=== PATIENT | male | born 1980 | race Caucasian/White ===

== ENCOUNTER 2016-12-19 13:09 | Inpatient (IN) | payer OTHER ==
[2016-12-19 15:21] VITALS: BMI 23.0
[2016-12-19] MEDS ORDERED: MAGNESIUM HYDROX 2400MG/30ML ORAL SUSPENSION 30 ML CUP PO PRN (17:35)
[2016-12-19] MEDS ORDERED: MAG HYDROX/AL HYDROX/SIMETH 30 ML UNIT-DOSE CUP PO PRN (17:35)
[2016-12-19] MEDS ORDERED: P-EPHED 60MG/TRIPROLIDI 2.5MG TABLET PO PRN (17:35)
[2016-12-19] MEDS ORDERED: IBUPROFEN 400 MG TABLET (FP) PO PRN (17:35)
[2016-12-19] MEDS ORDERED: ACETAMINOPHEN 325 MG TABLET (FP) PO PRN (17:35)
[2016-12-19] MEDS ORDERED: MAGNESIUM CITRATE 300 ML BOTTLE PO PRN (17:35)
[2016-12-19] MEDS ORDERED: guaiFENesin/D-METHORPHAN HB 10 ML UNIT-DOSE CUPS PO PRN (17:35)
[2016-12-19] MEDS ORDERED: MENTHOL/PHENOL 1 EACH UD MM PRN (17:35)
[2016-12-19] MEDS ORDERED: LOPERAMIDE HCL 2 MG CAPSULE PO PRN (17:35)
--- NOTE | 2016-12-19 17:35 | HP ---
COWS - Scale Resting Pulse: 0= [place] 80 or Below Sweatin= Chills/Flushing Restless Observation: 3= Extraneous Movement Pupil Size: 1= Pupils >than Normal Bone or Joint Aches: 1= Mild Discomfort Runny Nose/ Eye Tearin= Runny Nose/Eyes GI Upset > 30mins: 2= Nausea/Diarrhea Tremor Observation: 2= Slight Tremor Visible Yawning Observation: 1= 1-2x During Session Anxiety or Irritability: 2=Irritable/Anxious Goose Flesh Skin: 0=Smooth Skin COWS Score: 15 Admission ROS S - [facility] Chief Complaint: WITHDRAWAL SX Allergies/Adverse Reactions: Allergies Allergy/AdvReac Type Severity Reaction Status Date / Time No Known Allergies Allergy Verified 12/19/16 16:15 History of Present Illness: 36 YEARS OLD MALE WITH LONG HISTORY OF PERCOCET NICOTINE DEPENDENCE, DENIES MEDICAL ISSUE DENIES MENTAL ILLNESS IS ADMITTED TO DETOX Exam Limitations: No Limitations - Ebola screening Have you traveled outside of the country in the last 21 days: No Have you had contact with anyone from an Ebola affected area: No Have you been sick,other than usual withdrawal symptoms: No Do you have a fever: No - Review of Systems Constitutional: Chills, Loss of Appetite, Changes in sleep, Unintentional Wgt. Loss EENT: reports: No Symptoms Reported Respiratory: reports: Shortness of Breath Cardiac: reports: No Symptoms Reported GI: reports: Nausea, Poor Appetite, Poor Fluid Intake, Indigestion, Abdominal cramping : reports: No Symptoms Reported Musculoskeletal: reports: No Symptoms Reported Integumentary: reports: No Symptoms Reported Neuro: reports: Tremors Endocrine: reports: No Symptoms Reported Hematology: reports: No Symptoms Reported Psychiatric: reports: Judgement Intact, Mood/Affect Appropiate, Orientated x3 Other Systems: Reviewed and Negative Patient History - Patient Medical History Hx Anemia: No Hx Asthma: No Hx Chronic Obstructive Pulmonary Disease (COPD): No Hx Cancer: No Hx Cardiac Disorders: No Hx Congestive Heart Failure: No Hx Hypertension: No Hx Hypercholesterolemia: No Hx Pacemaker: No HX Cerebrovascular Accident: No Hx Seizures: No Hx Dementia: No Hx Diabetes: No Hx Gastrointestinal Disorders: No Hx Liver Disease: No Hx Genitourinary Disorders: No Hx Sexually Transmitted Disorders: No Hx Renal Disease (ESRD): No Hx Thyroid Disease: No Hx Human Immunodeficiency Virus (HIV): No (negative ) Hx Hepatitis C: No Hx Depression: No Hx Suicide Attempt: No Hx Bipolar Disorder: No Hx Schizophrenia: No - Patient Surgical History Past Surgical History: No Hx Neurologic Surgery: No Hx Cataract Extraction: No Hx Cardiac Surgery: No Hx Lung Surgery: No Hx Breast Surgery: No Hx Breast Biopsy: No Hx Abdominal Surgery: No Hx Appendectomy: No Hx Cholecystectomy: No Hx Genitourinary Surgery: No Hx Orthopedic Surgery: No - PPD History Previous Implant?: Yes Documented Results: Negative w/proof Implanted On Prior [facility] Admission?: Yes Date: 09/13/14 Results: 0 mm PPD to be Administered?: Yes - Smoking Cessation Smoking history: Current every day smoker Have you smoked in the past 12 months: Yes Aproximately how many cigarettes per day: 20 Cigars Per Day: 0 Hx Chewing Tobacco Use: No Initiated information on smoking cessation: Yes 'Breaking Loose' booklet given: 12/19/16 - Substance & Tx. History Hx Alcohol Use: No Hx Substance Use: Yes Substance Use Type: Cocaine, Marijuana, Opiates Hx Substance Use Treatment: Yes - Substances Abused Cocaine Route: Inhalation Frequency: 1-2 times per week Amount used: $30 Age of first use: 19 Date of Last Use: 12/18/16 Percocet Route: Oral Frequency: Daily Amount used: 600-1000 MG Age of first use: 33 Date of Last Use: 12/19/16 Marijuana Route: Smoking Frequency: Daily Amount used: $10 Age of first use: 14 Date of Last Use: 12/18/16 Family Disease History - Family Disease History Family Disease History: [place]: Grandparent () Admission Physical Exam S - Vital Signs Vital Signs: Vital Signs - 24 hr 12/19/16 15:20 Temperature 96.1 F L Pulse Rate 74 Respiratory 16 Rate Blood Pressure 122/69 - Physical General Appearance: Yes: Appropriately Dressed, Mild Distress, Thin, Tremorous, Irritable, Sweating, Anxious HEENTM: Yes: Hearing grossly Normal, Normal ENT Inspection, Normocephalic, Normal Voice Respiratory: Yes: Chest Non-Tender, Lungs Clear, Normal Breath Sounds, No Respiratory Distress, No Accessory Muscle Use Neck: Yes: Supple, Trachea in good position Breast: Yes: Breasts Symetrical Cardiology: Yes: Regular Rhythm, Regular Rate, S1, S2 Abdominal: Yes: Non Tender, Soft Genitourinary: Yes: Within Normal Limits Back: Yes: Normal Inspection Musculoskeletal: Yes: full range of Motion, Gait Steady, Back pain Neurological: Yes: Fully Oriented, Alert, Motor Strength 5/5, Normal Mood/Affect , Normal Response Integumentary: Yes: Warm, Moist Lymphatic: Yes: Within Normal Limits - Diagnostic (1) Opioid dependence with withdrawal Current Visit: Yes Status: Acute (2) Cocaine dependence, uncomplicated Current Visit: Yes Status: Chronic (3) Cannabis dependence, uncomplicated Current Visit: Yes Status: Chronic (4) Nicotine dependence Current Visit: Yes Status: Acute Qualifiers: Nicotine product type: cigarettes Substance use status: in withdrawal Qualified Code(s): F17.213 - Nicotine dependence, cigarettes, with withdrawal (5) Weight loss Current Visit: Yes Status: Acute Cleared for Admission [facility] - Detox or Rehab [facility] Level of Care: Medically Managed Detox Regimen/Protocol: Methadone [facility] Breath Alcohol Content Breath Alcohol Content: 0 Urine Drug Screen - Results Drug Screen Negative: No Urine Drug Screen Results: THC-Marijuana, ESPERANZA-Cocaine, OXY-Oxycodone
[2016-12-19] MEDS ORDERED: METHADONE HCL 10 MG TABLET (FOR DETOX USE ONLY) PO ONE ×2 (18:30→23:00)
[2016-12-19] MEDS: diazePAM 5 MG TABLET PO PRN ×2 (18:44→23:32)
[2016-12-19] MEDS: CYCLOBENZAPRINE HCL 10 MG TABLET (FP) PO PRN (19:33)
[2016-12-19 19:56] LABS: URINE APPEARANCE CLEAR; URINE BILIRUBIN NEGATIVE (NEGATIVE); URINE BLOOD NEGATIVE (NEGATIVE); URINE COLOR LTYELLOW; URINE GLUCOSE (UA) NEGATIVE (NEGATIVE); URINE KETONE NEGATIVE (NEGATIVE); URINE LEUK ESTERASE NEGATIVE (NEGATIVE); URINE NITRITE NEGATIVE (NEGATIVE); URINE PROTEIN NEGATIVE (NEGATIVE); URINE UROBILINOGEN NEGATIVE E.U./dl (0.2-1.0)
[2016-12-19] MEDS: NICOTINE 21 MG/24 HOURS TOPICAL PATCH TD SCH (21:18)
--- NOTE | 2016-12-19 21:47 | PN ---
S Progress Note Note: RECEIVED NURSE CALL PATIENT WANTS NICOTINE PATCH NOW NICOTINE PATCH BEGIN TODAY CONTINUE DETOX
[2016-12-19] MEDS: THIAMINE HCL 100 MG TABLET (FP) PO SCH (22:13)
[2016-12-20] MEDS: CYCLOBENZAPRINE HCL 10 MG TABLET (FP) PO PRN ×2 (08:33→22:31)
--- NOTE | 2016-12-20 09:22 | PN ---
BHS COWS - Scale Resting Pulse: 0= [place] 80 or Below Sweatin=Flushed/Facial Moisture Restless Observation: 1= Difficult to Sit Still Pupil Size: 1= Pupils >than Normal Bone or Joint Aches: 1= Mild Discomfort Runny Nose/ Eye Tearin= Nasal Congestion GI Upset > 30mins: 1= Stomach Cramp Tremor Observation of Outstretched Hands: 1= Tremor [place], Not Seen Yawning Observation: 0= None Anxiety or Irritability: 2=Irritable/Anxious Goose Flesh Skin: 0=Smooth Skin COWS Score: 10 BHS Progress Note (SOAP) Subjective: interrupted sleep, sweats Objective: 12/20/16 09:20 Vital Signs Temperature 97 F L 12/20/16 06:59 Pulse Rate 72 12/20/16 06:59 Respiratory Rate 18 12/20/16 06:59 Blood Pressure 137/80 12/20/16 06:59 O2 Sat by Pulse Oximetry (%) Assessment: 12/20/16 09:21 withdrawal sx,s Plan: cont, detox increase fluids
[2016-12-20] MEDS ORDERED: METHADONE HCL 10 MG TABLET (FOR DETOX USE ONLY) PO ONE (10:00)
[2016-12-20] MEDS ORDERED: NICOTINE 21 MG/24 HOURS TOPICAL PATCH TD SCH (10:00)
[2016-12-20 10:06] LABS: MCH 31.5 pg (25.7-33.7); MEAN CELL VOLUME 95.5 fl (80-96); PLATELET COUNT 184 K/MM3 (134-434); WHITE BLOOD COUNT 5.8 K/mm3 (4.0-10.0)
[2016-12-20 10:18] LABS: ALBUMIN 3.7 g/dl (3.4-5.0); ANION GAP 7 (8-16); CALCIUM 8.7 mg/dL (8.5-10.1); CO2 29 mmol/L (21-32); GLUCOSE,RANDOM 84 mg/dL (74-106)
[2016-12-20 10:21] LABS: ALK PHOS 75 U/L (45-117); BILIRUBIN,TOTAL 0.2 mg/dL (0.2-1.0); CREATININE 1.3 mg/dL (0.7-1.3); SGOT/AST 18 U/L (15-37); SGPT/ALT 18 U/L (12-78); TOT PROT 6.6 g/dl (6.4-8.2)
[2016-12-20] MEDS: diazePAM 5 MG TABLET PO PRN ×3 (10:34→22:31)
[2016-12-20] MEDS: PRENATAL VITAMINS W/ FOLIC ACID TABLET (FP) PO SCH (10:34)
[2016-12-20] MEDS: NICOTINE 21 MG/24 HOURS TOPICAL PATCH TD SCH (10:34)
--- NOTE | 2016-12-20 15:06 | EKG ---
Test Reason : Blood Pressure : / mmHG Vent. Rate : 061 BPM Atrial Rate : 061 BPM P-R Int : 132 ms QRS Dur : 094 ms QT Int : 410 ms P-R-T Axes : 046 040 015 degrees QTc Int : 412 ms NORMAL SINUS RHYTHM NORMAL ECG WHEN COMPARED WITH ECG OF 18-OCT-2013 17:52, NO SIGNIFICANT CHANGE WAS FOUND Confirmed by CHUCK BETANCOURT MD ([id number]) on 12/20/2016 3:06:40 PM Referred By: Confirmed By:CHUCK BETANCOURT MD
[2016-12-20] MEDS: THIAMINE HCL 100 MG TABLET (FP) PO SCH (22:31)
[2016-12-20] MEDS: diphenhydrAMINE HCL 50 MG CAPSULE PO PRN (22:32)
[2016-12-20] MEDS: NICOTINE POLACRILEX 4 MG GUM BC PRN (22:33)
[2016-12-21] MEDS ORDERED: METHADONE HCL 5 MG TABLET (FOR DETOX USE ONLY) PO ONE (10:00)
[2016-12-21] MEDS: diazePAM 5 MG TABLET PO PRN ×4 (10:20→23:07)
[2016-12-21] MEDS: CYCLOBENZAPRINE HCL 10 MG TABLET (FP) PO PRN ×2 (10:20→18:40)
[2016-12-21] MEDS: PRENATAL VITAMINS W/ FOLIC ACID TABLET (FP) PO SCH (10:20)
[2016-12-21] MEDS: NICOTINE 21 MG/24 HOURS TOPICAL PATCH TD SCH (10:21)
[2016-12-21] MEDS: NICOTINE POLACRILEX 4 MG GUM BC PRN (10:43)
--- NOTE | 2016-12-21 12:19 | PN ---
BHS COWS - Scale Resting Pulse: 0= [place] 80 or Below Sweatin= Chills/Flushing Restless Observation: 1= Difficult to Sit Still Pupil Size: 0= Normal to Room Light Bone or Joint Aches: 1= Mild Discomfort Runny Nose/ Eye Tearin= None GI Upset > 30mins: 1= Stomach Cramp Tremor Observation of Outstretched Hands: 2= Slight Tremor Visible Yawning Observation: 0= None Anxiety or Irritability: 2=Irritable/Anxious Goose Flesh Skin: 3=Piloe[place] COWS Score: 11 BHS Progress Note (SOAP) Subjective: Interrupted Sleep, Tremors. Objective: PT. A & O X 2, (DISORIENTED ABOUT DAY / DATE). PT. OBSERVED AMBULATING ON UNIT. 12/21/16 12:17 Vital Signs Temperature 96.6 F L 12/21/16 09:57 Pulse Rate 69 12/21/16 09:57 Respiratory Rate 18 12/21/16 09:57 Blood Pressure 143/64 12/21/16 09:57 O2 Sat by Pulse Oximetry (%) Laboratory Last Values WBC 5.8 K/mm3 (4.0-10.0) 12/20/16 06:10 RBC 4.22 M/mm3 (4.00-5.60) 12/20/16 06:10 Hgb 13.3 GM/dL (11.7-16.9) 12/20/16 06:10 Hct 40.3 % (35.4-49) 12/20/16 06:10 MCV 95.5 fl (80-96) 12/20/16 06:10 MCHC 33.0 g/dl (32.0-35.9) 12/20/16 06:10 RDW 13.0 % (11.9-15.9) 12/20/16 06:10 Plt Count 184 K/MM3 (134-434) 12/20/16 06:10 MPV 11.0 fl (7.5-11.1) 12/20/16 06:10 Sodium 141 mmol/L (136-145) 12/20/16 06:10 Potassium 4.3 mmol/L (3.5-5.1) 12/20/16 06:10 Chloride 105 mmol/L (98-107) 12/20/16 06:10 Carbon Dioxide 29 mmol/L (21-32) 12/20/16 06:10 Anion Gap 7 (8-16) L 12/20/16 06:10 BUN 17 mg/dL (7-18) D 12/20/16 06:10 Creatinine 1.3 mg/dL (0.7-1.3) 12/20/16 06:10 Creat Clearance w eGFR > 60 (>60) 12/20/16 06:10 Random Glucose 84 mg/dL (74-106) 12/20/16 06:10 Calcium 8.7 mg/dL (8.5-10.1) 12/20/16 06:10 Total Bilirubin 0.2 mg/dL (0.2-1.0) D 12/20/16 06:10 AST 18 U/L (15-37) 12/20/16 06:10 ALT 18 U/L (12-78) 12/20/16 06:10 Alkaline Phosphatase 75 U/L (45-117) D 12/20/16 06:10 Total Protein 6.6 g/dl (6.4-8.2) 12/20/16 06:10 Albumin 3.7 g/dl (3.4-5.0) 12/20/16 06:10 Urine Color Ltyellow 12/19/16 19:00 Urine Appearance Clear 12/19/16 19:00 Urine pH 5.0 (5.0-8.0) 12/19/16 19:00 Ur Specific [place] 1.025 (1.001-1.035) 12/19/16 19:00 Urine Protein Negative (NEGATIVE) 12/19/16 19:00 Urine Glucose (UA) Negative (NEGATIVE) 12/19/16 19:00 Urine Ketones Negative (NEGATIVE) 12/19/16 19:00 Urine Blood Negative (NEGATIVE) 12/19/16 19:00 Urine Nitrite Negative (NEGATIVE) 12/19/16 19:00 Urine Bilirubin Negative (NEGATIVE) 12/19/16 19:00 Urine Urobilinogen Negative E.U./dl (0.2-1.0) 12/19/16 19:00 Ur Leukocyte Esterase Negative (NEGATIVE) 12/19/16 19:00 RPR Titer Nonreactive (NONREACTIVE) 12/20/16 06:10 Hepatitis C Antibody 0.5 s/co ratio (0.0-0.9) 12/20/16 06:10 LABS NOTED. Assessment: 12/21/16 12:18 WITHDRAWAL SYMPTOMS. Plan: CONTINUE DETOX.
[2016-12-21] MEDS: diphenhydrAMINE HCL 50 MG CAPSULE PO PRN (23:07)
[2016-12-21] MEDS: THIAMINE HCL 100 MG TABLET (FP) PO SCH (23:07)
[2016-12-22] MEDS: diazePAM 5 MG TABLET PO PRN ×3 (05:53→14:39)
[2016-12-22] MEDS: CYCLOBENZAPRINE HCL 10 MG TABLET (FP) PO PRN ×3 (05:53→22:02)
[2016-12-22] MEDS: NICOTINE POLACRILEX 4 MG GUM BC PRN ×3 (07:22→21:48)
[2016-12-22] MEDS ORDERED: METHADONE HCL 5 MG TABLET (FOR DETOX USE ONLY) PO ONE (10:00)
[2016-12-22] MEDS: NICOTINE 21 MG/24 HOURS TOPICAL PATCH TD SCH (10:15)
[2016-12-22] MEDS: PRENATAL VITAMINS W/ FOLIC ACID TABLET (FP) PO SCH (10:15)
--- NOTE | 2016-12-22 12:23 | PN ---
S Progress Note (SOAP) Subjective: Generalized pain Objective: 12/22/16 12:23 Vital Signs - 8 hr 12/22/16 12/22/16 06:00 10:00 Temperature 97.9 F 99.0 F Pulse Rate 79 94 H Respiratory 18 18 Rate Blood Pressure 104/71 140/64 Laboratory Last Values WBC 5.8 K/mm3 (4.0-10.0) 12/20/16 06:10 RBC 4.22 M/mm3 (4.00-5.60) 12/20/16 06:10 Hgb 13.3 GM/dL (11.7-16.9) 12/20/16 06:10 Hct 40.3 % (35.4-49) 12/20/16 06:10 MCV 95.5 fl (80-96) 12/20/16 06:10 MCHC 33.0 g/dl (32.0-35.9) 12/20/16 06:10 RDW 13.0 % (11.9-15.9) 12/20/16 06:10 Plt Count 184 K/MM3 (134-434) 12/20/16 06:10 MPV 11.0 fl (7.5-11.1) 12/20/16 06:10 Sodium 141 mmol/L (136-145) 12/20/16 06:10 Potassium 4.3 mmol/L (3.5-5.1) 12/20/16 06:10 Chloride 105 mmol/L (98-107) 12/20/16 06:10 Carbon Dioxide 29 mmol/L (21-32) 12/20/16 06:10 Anion Gap 7 (8-16) L 12/20/16 06:10 BUN 17 mg/dL (7-18) D 12/20/16 06:10 Creatinine 1.3 mg/dL (0.7-1.3) 12/20/16 06:10 Creat Clearance w eGFR > 60 (>60) 12/20/16 06:10 Random Glucose 84 mg/dL (74-106) 12/20/16 06:10 Calcium 8.7 mg/dL (8.5-10.1) 12/20/16 06:10 Total Bilirubin 0.2 mg/dL (0.2-1.0) D 12/20/16 06:10 AST 18 U/L (15-37) 12/20/16 06:10 ALT 18 U/L (12-78) 12/20/16 06:10 Alkaline Phosphatase 75 U/L (45-117) D 12/20/16 06:10 Total Protein 6.6 g/dl (6.4-8.2) 12/20/16 06:10 Albumin 3.7 g/dl (3.4-5.0) 12/20/16 06:10 Urine Color Ltyellow 12/19/16 19:00 Urine Appearance Clear 12/19/16 19:00 Urine pH 5.0 (5.0-8.0) 12/19/16 19:00 Ur Specific [place] 1.025 (1.001-1.035) 12/19/16 19:00 Urine Protein Negative (NEGATIVE) 12/19/16 19:00 Urine Glucose (UA) Negative (NEGATIVE) 12/19/16 19:00 Urine Ketones Negative (NEGATIVE) 12/19/16 19:00 Urine Blood Negative (NEGATIVE) 12/19/16 19:00 Urine Nitrite Negative (NEGATIVE) 12/19/16 19:00 Urine Bilirubin Negative (NEGATIVE) 12/19/16 19:00 Urine Urobilinogen Negative E.U./dl (0.2-1.0) 12/19/16 19:00 Ur Leukocyte Esterase Negative (NEGATIVE) 12/19/16 19:00 RPR Titer Nonreactive (NONREACTIVE) 12/20/16 06:10 Hepatitis C Antibody 0.5 s/co ratio (0.0-0.9) 12/20/16 06:10 Labs noted Assessment: 12/22/16 12:23 withdrawal sx Plan: continue detox
[2016-12-22] MEDS: hydrOXYzine PAMOATE 50 MG CAPSULE (FP) PO PRN (17:53)
[2016-12-22] MEDS: diphenhydrAMINE HCL 50 MG CAPSULE PO PRN (22:02)
[2016-12-22] MEDS: THIAMINE HCL 100 MG TABLET (FP) PO SCH (22:03)
[2016-12-23] MEDS: hydrOXYzine PAMOATE 50 MG CAPSULE (FP) PO PRN ×3 (05:17→22:09)
[2016-12-23] MEDS: CYCLOBENZAPRINE HCL 10 MG TABLET (FP) PO PRN ×3 (05:17→22:09)
[2016-12-23] MEDS: NICOTINE POLACRILEX 4 MG GUM BC PRN ×3 (07:19→16:43)
[2016-12-23] MEDS ORDERED: METHADONE HCL 10 MG TABLET (FOR DETOX USE ONLY) PO ONE (10:00)
[2016-12-23] MEDS: PRENATAL VITAMINS W/ FOLIC ACID TABLET (FP) PO SCH (10:13)
[2016-12-23] MEDS: NICOTINE 21 MG/24 HOURS TOPICAL PATCH TD SCH (10:13)
--- NOTE | 2016-12-23 11:46 | PN ---
BHS Progress Note (SOAP) Subjective: Interrupted Sleep, Body Aches, Restlessness, Chills, Tremors Objective: Vital Signs Temperature 98.1 F 12/23/16 10:00 Pulse Rate 100 H 12/23/16 10:00 Respiratory Rate 16 12/23/16 10:00 Blood Pressure 122/70 12/23/16 10:00 O2 Sat by Pulse Oximetry (%) Laboratory Last Values WBC 5.8 K/mm3 (4.0-10.0) 12/20/16 06:10 RBC 4.22 M/mm3 (4.00-5.60) 12/20/16 06:10 Hgb 13.3 GM/dL (11.7-16.9) 12/20/16 06:10 Hct 40.3 % (35.4-49) 12/20/16 06:10 MCV 95.5 fl (80-96) 12/20/16 06:10 MCHC 33.0 g/dl (32.0-35.9) 12/20/16 06:10 RDW 13.0 % (11.9-15.9) 12/20/16 06:10 Plt Count 184 K/MM3 (134-434) 12/20/16 06:10 MPV 11.0 fl (7.5-11.1) 12/20/16 06:10 Sodium 141 mmol/L (136-145) 12/20/16 06:10 Potassium 4.3 mmol/L (3.5-5.1) 12/20/16 06:10 Chloride 105 mmol/L (98-107) 12/20/16 06:10 Carbon Dioxide 29 mmol/L (21-32) 12/20/16 06:10 Anion Gap 7 (8-16) L 12/20/16 06:10 BUN 17 mg/dL (7-18) D 12/20/16 06:10 Creatinine 1.3 mg/dL (0.7-1.3) 12/20/16 06:10 Creat Clearance w eGFR > 60 (>60) 12/20/16 06:10 Random Glucose 84 mg/dL (74-106) 12/20/16 06:10 Calcium 8.7 mg/dL (8.5-10.1) 12/20/16 06:10 Total Bilirubin 0.2 mg/dL (0.2-1.0) D 12/20/16 06:10 AST 18 U/L (15-37) 12/20/16 06:10 ALT 18 U/L (12-78) 12/20/16 06:10 Alkaline Phosphatase 75 U/L (45-117) D 12/20/16 06:10 Total Protein 6.6 g/dl (6.4-8.2) 12/20/16 06:10 Albumin 3.7 g/dl (3.4-5.0) 12/20/16 06:10 Urine Color Ltyellow 12/19/16 19:00 Urine Appearance Clear 12/19/16 19:00 Urine pH 5.0 (5.0-8.0) 12/19/16 19:00 Ur Specific [place] 1.025 (1.001-1.035) 12/19/16 19:00 Urine Protein Negative (NEGATIVE) 12/19/16 19:00 Urine Glucose (UA) Negative (NEGATIVE) 12/19/16 19:00 Urine Ketones Negative (NEGATIVE) 12/19/16 19:00 Urine Blood Negative (NEGATIVE) 12/19/16 19:00 Urine Nitrite Negative (NEGATIVE) 12/19/16 19:00 Urine Bilirubin Negative (NEGATIVE) 12/19/16 19:00 Urine Urobilinogen Negative E.U./dl (0.2-1.0) 12/19/16 19:00 Ur Leukocyte Esterase Negative (NEGATIVE) 12/19/16 19:00 RPR Titer Nonreactive (NONREACTIVE) 12/20/16 06:10 Hepatitis C Antibody 0.5 s/co ratio (0.0-0.9) 12/20/16 06:10 Labs Noted Assessment: Withdrawal Symptoms Plan: Continue Detox
[2016-12-23] MEDS: THIAMINE HCL 100 MG TABLET (FP) PO SCH (22:09)
[2016-12-24] MEDS ORDERED: METHADONE HCL 5 MG TABLET (FOR DETOX USE ONLY) PO ONE (06:00)
[2016-12-24] MEDS: CYCLOBENZAPRINE HCL 10 MG TABLET (FP) PO PRN (06:23)
[2016-12-24 06:52] VITALS: BP 113/60; PULSE 101; TEMP 98.1
--- NOTE | 2016-12-24 09:09 | DS ---
[facility] Detox Discharge Summary Admission Date: 12/19/16 Discharge Date: 12/24/16 - History Present History: Cannabis Dependence, Cocaine Dependence, Opioid Dependence, Sedative Dependence - Physical Exam Results Vital Signs: Vital Signs Temperature 98.1 F 12/24/16 06:51 Pulse Rate 101 H 12/24/16 06:51 Respiratory Rate 20 12/24/16 06:51 Blood Pressure 113/60 12/24/16 06:51 O2 Sat by Pulse Oximetry (%) - Treatment Hospital Course: Detox Protocol Followed, Detoxed Safely, Responded well, Discharged Condition Good, Rehab Referral Accepted - Medication Discharge Medications: Ambulatory Orders NK [No Known Home Medication] 12/19/16 - Diagnosis (1) Nicotine dependence Current Visit: Yes Status: Chronic Qualifiers: Nicotine product type: cigarettes Substance use status: uncomplicated Qualified Code(s): F17.210 - Nicotine dependence, cigarettes, uncomplicated (2) Opioid dependence with withdrawal Current Visit: Yes Status: Chronic (3) Weight loss Current Visit: Yes Status: Acute (4) Cannabis dependence, uncomplicated Current Visit: Yes Status: Chronic (5) Cocaine dependence, uncomplicated Current Visit: Yes Status: Chronic (6) Abdominal pain Current Visit: No Status: Resolved (7) Constipation Current Visit: Yes Status: Suspected (8) Xanax use disorder, mild Current Visit: Yes Status: Chronic - AMA Did Patient Leave Against Medical Advice: No
== END 2016-12-24 09:15 | disposition home or self-care (01) | DRG 773 ==
LOC: YASAS 13:09 → Y6N 17:57
PROVIDERS: ADMIT Internal Medicine Addiction Medicine; ATTEND Internal Medicine Addiction Medicine
PROC: HZ2ZZZZ Detoxification Services for Substance Abuse Treatment (ICD-10-PCS; principal; 2016-12-24)
DX: F11.23 Opioid dependence with withdrawal (principal); F17.210 Nicotine dependence, cigarettes, uncomplicated; F12.20 Cannabis dependence, uncomplicated; F17.213 Nicotine dependence, cigarettes, with withdrawal; F13.10 Sedative, hypnotic or anxiolytic abuse, uncomplicated; K59.00 Constipation, unspecified; R63.4 Abnormal weight loss; Z68.23 Body mass index [BMI] 23.0-23.9, adult
CPT/HCPCS: 36415; 80053; 81003; 85027; 86593; 93005; 93010

== ENCOUNTER 2016-12-25 09:47 | Inpatient (IN) | payer OTHER ==
[2016-12-25 10:09] VITALS: BMI 22.7
[2016-12-25] MEDS ORDERED: MAGNESIUM CITRATE 300 ML BOTTLE PO PRN (11:51)
[2016-12-25] MEDS ORDERED: MENTHOL/PHENOL 1 EACH UD MM PRN (11:51)
[2016-12-25] MEDS ORDERED: MAGNESIUM HYDROX 2400MG/30ML ORAL SUSPENSION 30 ML CUP PO PRN (11:51)
[2016-12-25] MEDS ORDERED: LOPERAMIDE HCL 2 MG CAPSULE PO PRN (11:51)
[2016-12-25] MEDS ORDERED: MAG HYDROX/AL HYDROX/SIMETH 30 ML UNIT-DOSE CUP PO PRN (11:51)
[2016-12-25] MEDS ORDERED: guaiFENesin/D-METHORPHAN HB 10 ML UNIT-DOSE CUPS PO PRN (11:51)
[2016-12-25] MEDS ORDERED: P-EPHED 60MG/TRIPROLIDI 2.5MG TABLET PO PRN (11:51)
[2016-12-25] MEDS ORDERED: ACETAMINOPHEN 325 MG TABLET (FP) PO PRN (11:51)
--- NOTE | 2016-12-25 11:51 | HP ---
ADOLPH ELIZALDE Rehab Assess/Revision - Admission History Admitted to Rehab from: [facility] (COMPLETED DETOX ON FROM 12/19/16 TO .) Date of Admission to Rehab: 12/25/16 - Vital signs Vital Signs: Vital Signs Period Temp Pulse Resp BP Sys/Rondon Pulse Ox Last 24 Hr 97.3 F 95 18 103/70 - Findings Detox History & Physical reviewed: Yes Concur with findings: Yes Comments/Additional Findings: PT RETURNED TODAY FOR FOLLOW UP TO REHAB [place] RECOMMENDATION. DENIES PMHX/PSYCH HX. ALERT O X 3. NAD. ADMIT TO REHAB.
[2016-12-25] MEDS: NICOTINE 21 MG/24 HOURS TOPICAL PATCH TD SCH (15:15)
[2016-12-25 20:03] LABS: URINE APPEARANCE CLEAR; URINE BILIRUBIN NEGATIVE (NEGATIVE); URINE BLOOD NEGATIVE (NEGATIVE); URINE COLOR YELLOW; URINE GLUCOSE (UA) NEGATIVE (NEGATIVE); URINE KETONE NEGATIVE (NEGATIVE); URINE LEUK ESTERASE NEGATIVE (NEGATIVE); URINE NITRITE NEGATIVE (NEGATIVE); URINE PROTEIN NEGATIVE (NEGATIVE); URINE UROBILINOGEN NEGATIVE E.U./dl (0.2-1.0)
[2016-12-25] MEDS: THIAMINE HCL 100 MG TABLET (FP) PO SCH (22:02)
[2016-12-25] MEDS: diphenhydrAMINE HCL 50 MG CAPSULE PO PRN ×2 (22:02→23:35)
[2016-12-25] MEDS: hydrOXYzine PAMOATE 25 MG CAPSULE (FP) PO PRN (22:03)
--- NOTE | 2016-12-26 06:31 | HP ---
Psychiatrist Admission - Data Date of interview: 12/26/16 Admission source: 6N Identifying data: This is the first [facility] admision for this 36 years old single male, father of an 11 years old son, unemployed with no source of income, homeless, seeking rehab treatment for percocet, cocaine and marijuana Medical History: Unremarkable. Smokes cigarettes 1ppd Psychiatric History: Reports that age 12 he was referred by school to see a psychiatrist because he was acting up after his father abandoned the family. He saw that psychiatrist twice and no medication was prescribed. At present, reports feeling anxious and experiencing difficulty to sleep. Told speech writer that he was given Benadryl 50 mg last night for sleep but it did not help Physical/Sexual Abuse/Trauma History: Denies history of physical, sexual abuse as well as DV relationship Additional Comment: Reports history of 4-5 misdemeanor arrests. Denies being on probation at present Vital Signs: Vital Signs - 24 hr 12/25/16 12/26/16 10:08 03:30 Temperature 97.3 F L Pulse Rate 95 H Respiratory 18 18 Rate Blood Pressure 103/70 Allergies/Adverse Reactions: Allergies Allergy/AdvReac Type Severity Reaction Status Date / Time No Known Allergies Allergy Verified 12/25/16 10:16 Date of last physical exam: 12/19/16 Concur with the findings of this exam: Yes - Substance Abuse/Tx History Substance Use Type: Cocaine (Started using cocaine at age 19, consumes $30 worth 1-2 times weekly. Last used on 12/18/16), Marijuana (Started smoking marijuana at age 14, consumes $10 worth daily. Last smoked on 12/18/16), Opiates (Started using percocet at age 33, consumes 600-100 mg daily. Last used on ) Hx Substance Use Treatment: Yes (2 previous inpt detox @ [facility]) - Admission Criteria Previous failed treatment: Yes Poor recovery environment: Yes Lacks judgement: Yes Mental Status Exam - Mental Status Exam Alert and Oriented to: Time, Place, Person Cognitive Function: Fair Patient Appearance: Well Groomed Mood: Anxious Affect: Appropriate Patient Behavior: Cooperative Speech Pattern: Clear Voice Loudness: Normal Thought Process: Intact Thought Disorder: Not Present Hallucinations: Denies Suicidal Ideation: Denies Homicidal Ideation: Denies Insight/Judgement: Fair Sleep: Poorly Appetite: Poor Muscle strength/Tone: Normal Gait/Station: Normal Psychiatric Findings - Problem List ([place] 1, 2,3) (1) Opioid dependence with withdrawal Current Visit: No Status: Chronic (2) Cocaine dependence, uncomplicated Current Visit: No Status: Chronic (3) Cannabis dependence, uncomplicated Current Visit: No Status: Chronic (4) Nicotine dependence Current Visit: No Status: Chronic Qualifiers: Nicotine product type: cigarettes Substance use status: uncomplicated Qualified Code(s): F17.210 - Nicotine dependence, cigarettes, uncomplicated (5) Substance-induced anxiety disorder Current Visit: Yes Status: Acute (6) Substance-induced sleep disorder Current Visit: Yes Status: Acute - Initial Treatment Plan Initial Treatment Plan: 1) Start Benadryl 100 mg po HS prn for insomnia. 2) Monitor progress
[2016-12-26] MEDS: NICOTINE 21 MG/24 HOURS TOPICAL PATCH TD SCH (09:59)
[2016-12-26] MEDS: PRENATAL VITAMINS W/ FOLIC ACID TABLET (FP) PO SCH (09:59)
[2016-12-26] MEDS: hydrOXYzine PAMOATE 25 MG CAPSULE (FP) PO PRN ×3 (10:00→20:17)
[2016-12-26] MEDS: NICOTINE POLACRILEX 4 MG GUM BUC PRN (10:00)
--- NOTE | 2016-12-26 13:48 | EKG ---
Test Reason : Blood Pressure : / mmHG Vent. Rate : 081 BPM Atrial Rate : 081 BPM P-R Int : 134 ms QRS Dur : 100 ms QT Int : 390 ms P-R-T Axes : 068 039 023 degrees QTc Int : 453 ms NORMAL SINUS RHYTHM POSSIBLE LEFT ATRIAL ENLARGEMENT INCOMPLETE RIGHT BUNDLE BRANCH BLOCK SEPTAL INFARCT , AGE UNDETERMINED ABNORMAL ECG WHEN COMPARED WITH ECG OF 19-DEC-2016 18:51, NO SIGNIFICANT CHANGE WAS FOUND Confirmed by MARCK STODDARD MD ([id number]) on 12/26/2016 1:48:18 PM Referred By: Sloan Steven Confirmed By:MARCK STODDARD MD
--- NOTE | 2016-12-26 13:55 | EKG ---
Test Reason : Blood Pressure : / mmHG Vent. Rate : 067 BPM Atrial Rate : 067 BPM P-R Int : 142 ms QRS Dur : 098 ms QT Int : 428 ms P-R-T Axes : 066 048 024 degrees QTc Int : 452 ms NORMAL SINUS RHYTHM NORMAL ECG WHEN COMPARED WITH ECG OF 25-DEC-2016 21:13, INCOMPLETE RIGHT BUNDLE BRANCH BLOCK IS NO LONGER PRESENT CRITERIA FOR SEPTAL INFARCT ARE NO LONGER PRESENT Confirmed by ARLYN ELIZALDE, MARCK ([id number]) on 12/26/2016 1:55:14 PM Referred By: Sloan Steven Confirmed By:MARCK STODDARD MD
[2016-12-26] MEDS: THIAMINE HCL 100 MG TABLET (FP) PO SCH (21:32)
[2016-12-26] MEDS: diphenhydrAMINE HCL 50 MG CAPSULE PO PRN (21:32)
[2016-12-27] MEDS: hydrOXYzine PAMOATE 25 MG CAPSULE (FP) PO PRN ×3 (07:46→16:03)
[2016-12-27] MEDS: PRENATAL VITAMINS W/ FOLIC ACID TABLET (FP) PO SCH (09:44)
[2016-12-27] MEDS: NICOTINE 21 MG/24 HOURS TOPICAL PATCH TD SCH (09:44)
[2016-12-27] MEDS: diphenhydrAMINE HCL 50 MG CAPSULE PO PRN (21:48)
[2016-12-27] MEDS: THIAMINE HCL 100 MG TABLET (FP) PO SCH (21:48)
[2016-12-28] MEDS: hydrOXYzine PAMOATE 25 MG CAPSULE (FP) PO PRN ×4 (06:55→21:34)
[2016-12-28] MEDS: PRENATAL VITAMINS W/ FOLIC ACID TABLET (FP) PO SCH (09:49)
[2016-12-28] MEDS: NICOTINE 21 MG/24 HOURS TOPICAL PATCH TD SCH (09:50)
[2016-12-28] MEDS: THIAMINE HCL 100 MG TABLET (FP) PO SCH (21:34)
[2016-12-28] MEDS: diphenhydrAMINE HCL 50 MG CAPSULE PO PRN (22:37)
[2016-12-28] MEDS ORDERED: PT OWN MED DRAWER 7, Y5N ONE (22:52)
[2016-12-29] MEDS: hydrOXYzine PAMOATE 25 MG CAPSULE (FP) PO PRN ×3 (07:16→20:04)
[2016-12-29] MEDS: NICOTINE 21 MG/24 HOURS TOPICAL PATCH TD SCH (09:55)
[2016-12-29] MEDS: PRENATAL VITAMINS W/ FOLIC ACID TABLET (FP) PO SCH (09:56)
[2016-12-29 12:57] LABS: URINE APPEARANCE CLEAR; URINE BILIRUBIN NEGATIVE (NEGATIVE); URINE BLOOD NEGATIVE (NEGATIVE); URINE COLOR LTYELLOW; URINE GLUCOSE (UA) NEGATIVE (NEGATIVE); URINE KETONE NEGATIVE (NEGATIVE); URINE LEUK ESTERASE NEGATIVE (NEGATIVE); URINE NITRITE NEGATIVE (NEGATIVE); URINE PROTEIN NEGATIVE (NEGATIVE); URINE UROBILINOGEN NEGATIVE E.U./dl (0.2-1.0)
[2016-12-29] MEDS: diphenhydrAMINE HCL 50 MG CAPSULE PO PRN (22:10)
[2016-12-29] MEDS: THIAMINE HCL 100 MG TABLET (FP) PO SCH (22:12)
[2016-12-30] MEDS: hydrOXYzine PAMOATE 25 MG CAPSULE (FP) PO PRN ×4 (07:11→21:45)
[2016-12-30] MEDS: NICOTINE 21 MG/24 HOURS TOPICAL PATCH TD SCH (09:52)
[2016-12-30] MEDS: PRENATAL VITAMINS W/ FOLIC ACID TABLET (FP) PO SCH (09:52)
[2016-12-30] MEDS: THIAMINE HCL 100 MG TABLET (FP) PO SCH (21:45)
[2016-12-31] MEDS: hydrOXYzine PAMOATE 25 MG CAPSULE (FP) PO PRN ×3 (06:23→20:17)
[2016-12-31] MEDS: NICOTINE 21 MG/24 HOURS TOPICAL PATCH TD SCH (09:59)
[2016-12-31] MEDS: PRENATAL VITAMINS W/ FOLIC ACID TABLET (FP) PO SCH (09:59)
[2016-12-31] MEDS: THIAMINE HCL 100 MG TABLET (FP) PO SCH (21:54)
[2016-12-31] MEDS: diphenhydrAMINE HCL 50 MG CAPSULE PO PRN (22:02)
[2017-01-01] MEDS: hydrOXYzine PAMOATE 25 MG CAPSULE (FP) PO PRN ×4 (06:40→21:49)
[2017-01-01] MEDS: PRENATAL VITAMINS W/ FOLIC ACID TABLET (FP) PO SCH (09:47)
[2017-01-01] MEDS: NICOTINE 21 MG/24 HOURS TOPICAL PATCH TD SCH (09:47)
[2017-01-01] MEDS: THIAMINE HCL 100 MG TABLET (FP) PO SCH (21:49)
[2017-01-02] MEDS: hydrOXYzine PAMOATE 25 MG CAPSULE (FP) PO PRN ×3 (06:40→21:53)
[2017-01-02] MEDS: NICOTINE 21 MG/24 HOURS TOPICAL PATCH TD SCH (09:50)
[2017-01-02] MEDS: PRENATAL VITAMINS W/ FOLIC ACID TABLET (FP) PO SCH (09:50)
[2017-01-02] MEDS: THIAMINE HCL 100 MG TABLET (FP) PO SCH (21:54)
[2017-01-03] MEDS: hydrOXYzine PAMOATE 25 MG CAPSULE (FP) PO PRN ×3 (06:10→20:02)
[2017-01-03] MEDS: PRENATAL VITAMINS W/ FOLIC ACID TABLET (FP) PO SCH (09:58)
[2017-01-03] MEDS: NICOTINE 21 MG/24 HOURS TOPICAL PATCH TD SCH (09:58)
[2017-01-03] MEDS: CYCLOBENZAPRINE HCL 10 MG TABLET (FP) PO PRN ×2 (12:51→20:02)
[2017-01-03] MEDS: THIAMINE HCL 100 MG TABLET (FP) PO SCH (21:39)
[2017-01-03] MEDS: diphenhydrAMINE HCL 50 MG CAPSULE PO PRN (21:40)
[2017-01-04] MEDS: hydrOXYzine PAMOATE 25 MG CAPSULE (FP) PO PRN ×3 (08:45→20:23)
[2017-01-04] MEDS: CYCLOBENZAPRINE HCL 10 MG TABLET (FP) PO PRN ×3 (08:45→21:23)
[2017-01-04] MEDS: NICOTINE 21 MG/24 HOURS TOPICAL PATCH TD SCH (09:39)
[2017-01-04] MEDS: PRENATAL VITAMINS W/ FOLIC ACID TABLET (FP) PO SCH (09:39)
[2017-01-04] MEDS: THIAMINE HCL 100 MG TABLET (FP) PO SCH (21:23)
[2017-01-04] MEDS: diphenhydrAMINE HCL 50 MG CAPSULE PO PRN (21:23)
[2017-01-05] MEDS: hydrOXYzine PAMOATE 25 MG CAPSULE (FP) PO PRN ×3 (06:39→22:04)
[2017-01-05] MEDS: PRENATAL VITAMINS W/ FOLIC ACID TABLET (FP) PO SCH (09:42)
[2017-01-05] MEDS: CYCLOBENZAPRINE HCL 10 MG TABLET (FP) PO PRN ×2 (09:42→22:04)
[2017-01-05] MEDS: NICOTINE 21 MG/24 HOURS TOPICAL PATCH TD SCH (09:43)
[2017-01-05] MEDS: THIAMINE HCL 100 MG TABLET (FP) PO SCH (22:05)
[2017-01-06] MEDS: hydrOXYzine PAMOATE 25 MG CAPSULE (FP) PO PRN ×3 (07:22→20:14)
[2017-01-06] MEDS: CYCLOBENZAPRINE HCL 10 MG TABLET (FP) PO PRN ×3 (07:22→20:14)
[2017-01-06] MEDS: NICOTINE 21 MG/24 HOURS TOPICAL PATCH TD SCH (09:39)
[2017-01-06] MEDS: PRENATAL VITAMINS W/ FOLIC ACID TABLET (FP) PO SCH (09:39)
[2017-01-06] MEDS: THIAMINE HCL 100 MG TABLET (FP) PO SCH (22:24)
[2017-01-06] MEDS: diphenhydrAMINE HCL 50 MG CAPSULE PO PRN (22:35)
[2017-01-07] MEDS: hydrOXYzine PAMOATE 25 MG CAPSULE (FP) PO PRN ×3 (06:35→17:43)
[2017-01-07] MEDS: CYCLOBENZAPRINE HCL 10 MG TABLET (FP) PO PRN ×2 (09:03→17:43)
[2017-01-07] MEDS: PRENATAL VITAMINS W/ FOLIC ACID TABLET (FP) PO SCH (09:46)
[2017-01-07] MEDS: NICOTINE 21 MG/24 HOURS TOPICAL PATCH TD SCH (09:46)
[2017-01-07] MEDS: THIAMINE HCL 100 MG TABLET (FP) PO SCH (21:47)
[2017-01-07] MEDS: diphenhydrAMINE HCL 50 MG CAPSULE PO PRN (21:47)
[2017-01-08] MEDS: hydrOXYzine PAMOATE 25 MG CAPSULE (FP) PO PRN ×3 (06:34→20:19)
[2017-01-08] MEDS: CYCLOBENZAPRINE HCL 10 MG TABLET (FP) PO PRN ×3 (07:37→22:01)
[2017-01-08] MEDS: NICOTINE 21 MG/24 HOURS TOPICAL PATCH TD SCH (09:51)
[2017-01-08] MEDS: PRENATAL VITAMINS W/ FOLIC ACID TABLET (FP) PO SCH (09:51)
[2017-01-08] MEDS: THIAMINE HCL 100 MG TABLET (FP) PO SCH (22:01)
[2017-01-08] MEDS: diphenhydrAMINE HCL 50 MG CAPSULE PO PRN (22:02)
[2017-01-09] MEDS: hydrOXYzine PAMOATE 25 MG CAPSULE (FP) PO PRN ×3 (06:15→19:25)
[2017-01-09] MEDS: CYCLOBENZAPRINE HCL 10 MG TABLET (FP) PO PRN ×3 (06:16→21:36)
[2017-01-09] MEDS: PRENATAL VITAMINS W/ FOLIC ACID TABLET (FP) PO SCH (09:41)
[2017-01-09] MEDS: NICOTINE 21 MG/24 HOURS TOPICAL PATCH TD SCH (09:41)
[2017-01-09] MEDS: diphenhydrAMINE HCL 50 MG CAPSULE PO PRN (21:37)
[2017-01-09] MEDS: THIAMINE HCL 100 MG TABLET (FP) PO SCH (21:37)
[2017-01-10] MEDS: hydrOXYzine PAMOATE 25 MG CAPSULE (FP) PO PRN ×3 (06:24→18:20)
[2017-01-10] MEDS: CYCLOBENZAPRINE HCL 10 MG TABLET (FP) PO PRN ×3 (07:38→22:46)
[2017-01-10] MEDS: PRENATAL VITAMINS W/ FOLIC ACID TABLET (FP) PO SCH (09:48)
[2017-01-10] MEDS: NICOTINE 21 MG/24 HOURS TOPICAL PATCH TD SCH (09:48)
[2017-01-10] MEDS: THIAMINE HCL 100 MG TABLET (FP) PO SCH (21:41)
[2017-01-10] MEDS: diphenhydrAMINE HCL 50 MG CAPSULE PO PRN (21:41)
[2017-01-11] MEDS: hydrOXYzine PAMOATE 25 MG CAPSULE (FP) PO PRN ×3 (07:02→20:00)
[2017-01-11] MEDS: CYCLOBENZAPRINE HCL 10 MG TABLET (FP) PO PRN ×4 (07:02→22:10)
[2017-01-11] MEDS: NICOTINE 21 MG/24 HOURS TOPICAL PATCH TD SCH (09:57)
[2017-01-11] MEDS: PRENATAL VITAMINS W/ FOLIC ACID TABLET (FP) PO SCH (09:57)
[2017-01-11] MEDS: diphenhydrAMINE HCL 50 MG CAPSULE PO PRN (22:10)
[2017-01-11] MEDS: THIAMINE HCL 100 MG TABLET (FP) PO SCH (22:10)
[2017-01-12] MEDS: hydrOXYzine PAMOATE 25 MG CAPSULE (FP) PO PRN ×3 (06:27→17:09)
[2017-01-12] MEDS: CYCLOBENZAPRINE HCL 10 MG TABLET (FP) PO PRN ×3 (07:45→20:14)
[2017-01-12] MEDS: IBUPROFEN 400 MG TABLET (FP) PO PRN ×2 (07:47→20:14)
[2017-01-12] MEDS: NICOTINE 21 MG/24 HOURS TOPICAL PATCH TD SCH (09:37)
[2017-01-12] MEDS: PRENATAL VITAMINS W/ FOLIC ACID TABLET (FP) PO SCH (09:37)
[2017-01-12] MEDS: THIAMINE HCL 100 MG TABLET (FP) PO SCH (22:00)
[2017-01-12] MEDS: diphenhydrAMINE HCL 50 MG CAPSULE PO PRN (22:00)
[2017-01-13] MEDS: IBUPROFEN 400 MG TABLET (FP) PO PRN (06:11)
[2017-01-13] MEDS: CYCLOBENZAPRINE HCL 10 MG TABLET (FP) PO PRN ×3 (06:11→20:06)
[2017-01-13] MEDS: hydrOXYzine PAMOATE 25 MG CAPSULE (FP) PO PRN ×4 (06:11→20:06)
[2017-01-13] MEDS: NICOTINE 21 MG/24 HOURS TOPICAL PATCH TD SCH (09:42)
[2017-01-13] MEDS: PRENATAL VITAMINS W/ FOLIC ACID TABLET (FP) PO SCH (09:42)
[2017-01-13] MEDS: diphenhydrAMINE HCL 50 MG CAPSULE PO PRN (22:20)
[2017-01-13] MEDS: THIAMINE HCL 100 MG TABLET (FP) PO SCH (22:20)
[2017-01-14] MEDS: hydrOXYzine PAMOATE 25 MG CAPSULE (FP) PO PRN ×3 (06:52→20:04)
[2017-01-14] MEDS: IBUPROFEN 400 MG TABLET (FP) PO PRN (07:45)
[2017-01-14] MEDS: CYCLOBENZAPRINE HCL 10 MG TABLET (FP) PO PRN ×3 (07:46→20:04)
[2017-01-14] MEDS: NICOTINE 21 MG/24 HOURS TOPICAL PATCH TD SCH (10:05)
[2017-01-14] MEDS: PRENATAL VITAMINS W/ FOLIC ACID TABLET (FP) PO SCH (10:05)
[2017-01-14] MEDS: NICOTINE POLACRILEX 4 MG GUM BUC PRN (13:03)
[2017-01-14] MEDS ORDERED: LIDOCAINE 5% TOPICAL PATCH TP ONE (14:26)
[2017-01-14] MEDS: IBUPROFEN 600 MG TABLET (FP) PO PRN (14:42)
[2017-01-14] MEDS: THIAMINE HCL 100 MG TABLET (FP) PO SCH (21:57)
[2017-01-14] MEDS: diphenhydrAMINE HCL 50 MG CAPSULE PO PRN (21:58)
[2017-01-15] MEDS: IBUPROFEN 600 MG TABLET (FP) PO PRN ×2 (07:10→19:58)
[2017-01-15] MEDS: CYCLOBENZAPRINE HCL 10 MG TABLET (FP) PO PRN ×3 (07:11→19:57)
[2017-01-15] MEDS: hydrOXYzine PAMOATE 25 MG CAPSULE (FP) PO PRN ×4 (07:12→22:02)
[2017-01-15] MEDS: LIDOCAINE 5% TOPICAL PATCH TP SCH (09:49)
[2017-01-15] MEDS: NICOTINE 21 MG/24 HOURS TOPICAL PATCH TD SCH (09:49)
[2017-01-15] MEDS: PRENATAL VITAMINS W/ FOLIC ACID TABLET (FP) PO SCH (09:49)
[2017-01-15] MEDS: THIAMINE HCL 100 MG TABLET (FP) PO SCH (22:02)
[2017-01-16] MEDS: hydrOXYzine PAMOATE 25 MG CAPSULE (FP) PO PRN ×4 (06:30→20:01)
[2017-01-16] MEDS: CYCLOBENZAPRINE HCL 10 MG TABLET (FP) PO PRN ×4 (06:30→21:48)
[2017-01-16] MEDS: PRENATAL VITAMINS W/ FOLIC ACID TABLET (FP) PO SCH (09:35)
[2017-01-16] MEDS: IBUPROFEN 600 MG TABLET (FP) PO PRN ×2 (09:36→21:48)
[2017-01-16] MEDS: NICOTINE 21 MG/24 HOURS TOPICAL PATCH TD SCH (09:38)
[2017-01-16] MEDS: LIDOCAINE 5% TOPICAL PATCH TP SCH (09:38)
[2017-01-16] MEDS: NICOTINE POLACRILEX 4 MG GUM BUC PRN ×2 (14:42→20:02)
[2017-01-16] MEDS: THIAMINE HCL 100 MG TABLET (FP) PO SCH (21:48)
[2017-01-17] MEDS: hydrOXYzine PAMOATE 25 MG CAPSULE (FP) PO PRN ×4 (06:08→22:01)
[2017-01-17] MEDS: IBUPROFEN 600 MG TABLET (FP) PO PRN ×2 (07:04→22:00)
[2017-01-17] MEDS: CYCLOBENZAPRINE HCL 10 MG TABLET (FP) PO PRN ×3 (07:04→22:00)
[2017-01-17] MEDS: NICOTINE 21 MG/24 HOURS TOPICAL PATCH TD SCH (09:43)
[2017-01-17] MEDS: PRENATAL VITAMINS W/ FOLIC ACID TABLET (FP) PO SCH (09:43)
[2017-01-17] MEDS: LIDOCAINE 5% TOPICAL PATCH TP SCH (09:43)
[2017-01-17] MEDS: NICOTINE POLACRILEX 4 MG GUM BUC PRN ×2 (09:44→15:53)
[2017-01-17] MEDS: THIAMINE HCL 100 MG TABLET (FP) PO SCH (22:00)
[2017-01-18] MEDS: hydrOXYzine PAMOATE 25 MG CAPSULE (FP) PO PRN ×3 (06:25→13:37)
[2017-01-18] MEDS: CYCLOBENZAPRINE HCL 10 MG TABLET (FP) PO PRN ×3 (06:25→15:56)
[2017-01-18] MEDS: IBUPROFEN 600 MG TABLET (FP) PO PRN ×2 (07:25→13:36)
[2017-01-18] MEDS: PRENATAL VITAMINS W/ FOLIC ACID TABLET (FP) PO SCH (09:56)
[2017-01-18] MEDS: NICOTINE 21 MG/24 HOURS TOPICAL PATCH TD SCH (09:56)
[2017-01-18] MEDS: LIDOCAINE 5% TOPICAL PATCH TP SCH (09:57)
[2017-01-18] MEDS: NICOTINE POLACRILEX 4 MG GUM BUC PRN (13:38)
[2017-01-18] MEDS: THIAMINE HCL 100 MG TABLET (FP) PO SCH (22:04)
[2017-01-18] MEDS: diphenhydrAMINE HCL 50 MG CAPSULE PO PRN (22:04)
[2017-01-19] MEDS: hydrOXYzine PAMOATE 25 MG CAPSULE (FP) PO PRN ×3 (06:26→20:12)
[2017-01-19] MEDS: CYCLOBENZAPRINE HCL 10 MG TABLET (FP) PO PRN ×3 (07:50→21:34)
[2017-01-19] MEDS: IBUPROFEN 600 MG TABLET (FP) PO PRN ×2 (07:50→20:11)
[2017-01-19] MEDS: NICOTINE 21 MG/24 HOURS TOPICAL PATCH TD SCH (09:48)
[2017-01-19] MEDS: LIDOCAINE 5% TOPICAL PATCH TP SCH (09:48)
[2017-01-19] MEDS: PRENATAL VITAMINS W/ FOLIC ACID TABLET (FP) PO SCH (09:48)
[2017-01-19] MEDS: NICOTINE POLACRILEX 4 MG GUM BUC PRN ×2 (14:06→21:34)
[2017-01-19] MEDS: THIAMINE HCL 100 MG TABLET (FP) PO SCH (21:34)
[2017-01-19] MEDS: diphenhydrAMINE HCL 50 MG CAPSULE PO PRN (21:34)
[2017-01-20] MEDS: hydrOXYzine PAMOATE 25 MG CAPSULE (FP) PO PRN ×4 (06:31→21:51)
[2017-01-20] MEDS: IBUPROFEN 600 MG TABLET (FP) PO PRN ×2 (06:31→21:51)
[2017-01-20] MEDS: CYCLOBENZAPRINE HCL 10 MG TABLET (FP) PO PRN ×2 (08:26→17:25)
[2017-01-20] MEDS: NICOTINE POLACRILEX 4 MG GUM BUC PRN (08:27)
[2017-01-20] MEDS: NICOTINE 21 MG/24 HOURS TOPICAL PATCH TD SCH (10:10)
[2017-01-20] MEDS: PRENATAL VITAMINS W/ FOLIC ACID TABLET (FP) PO SCH (10:10)
[2017-01-20] MEDS: LIDOCAINE 5% TOPICAL PATCH TP SCH (10:10)
[2017-01-20] MEDS: THIAMINE HCL 100 MG TABLET (FP) PO SCH (21:51)
[2017-01-21] MEDS: CYCLOBENZAPRINE HCL 10 MG TABLET (FP) PO PRN ×3 (06:24→18:12)
[2017-01-21] MEDS: hydrOXYzine PAMOATE 25 MG CAPSULE (FP) PO PRN ×4 (06:24→18:12)
[2017-01-21] MEDS: NICOTINE POLACRILEX 4 MG GUM BUC PRN ×2 (06:24→13:42)
[2017-01-21 06:38] VITALS: PULSE 85
[2017-01-21] MEDS: PRENATAL VITAMINS W/ FOLIC ACID TABLET (FP) PO SCH (09:58)
[2017-01-21] MEDS: NICOTINE 21 MG/24 HOURS TOPICAL PATCH TD SCH (09:58)
[2017-01-21] MEDS: LIDOCAINE 5% TOPICAL PATCH TP SCH (09:59)
--- NOTE | 2017-01-21 12:20 | PN ---
Psychiatric Progress Note Vital Signs: Vital Signs Period Temp Pulse Resp BP Sys/Rondon Pulse Ox Last 24 Hr 97.7 F 85 18-18 128/68 Date of Session: 01/21/17 Chief Complaint:: Psychiatrist Discharge Note HPI: Patient addressing Opoid, Cocaine and Cannabis Dependence comorbid with Nicotine Dependence, Substace-Induced Anxiety Disorder and Substance-induced Sleep Disorder Current Medications: Active Medications Generic Name Dose Route Start Last Admin Trade Name Freq PRN Reason Stop Dose Admin Acetaminophen 650 mg 12/25/16 11:51 Tylenol - PO Q4H PRN PAIN Al Hydroxide/Mg Hydroxide 30 ml 12/25/16 11:51 Mylanta Oral Suspension - PO Q6H PRN DYSPEPSIA Cyclobenzaprine HCl 10 mg 01/03/17 11:30 01/21/17 09:58 Flexeril - PO 10 mg TID PRN Administration MUSCLE SPASMS Diphenhydramine HCl 100 mg 12/26/16 22:00 01/19/17 21:34 Benadryl - PO 100 mg HS PRN Administration INSOMNIA Eucalyptus/Menthol/Phenol/Sorbitol 1 each 12/25/16 11:51 Cepastat Lozenge - MM Q4H PRN SORE THROAT Guaifenesin 10 ml 12/25/16 11:51 Robitussin Dm - PO Q6H PRN COUGH Hydroxyzine Pamoate 25 mg 12/25/16 11:51 01/21/17 09:58 Vistaril - PO 25 mg Q4H PRN Administration AGITATION Ibuprofen 600 mg 01/14/17 14:26 01/20/17 21:51 Motrin - PO 600 mg Q6H PRN Administration SEVERE PAIN Lidocaine 1 patch 01/15/17 10:00 01/21/17 09:59 Lidoderm Patch - TP Not Given DAILY TERRY Loperamide HCl 4 mg 12/25/16 11:51 Imodium - PO Q6H PRN DIARRHEA Magnesium Citrate 300 ml 12/25/16 11:51 Citroma - PO Q48H PRN CONSTIPATION Magnesium Hydroxide 30 ml 12/25/16 11:51 Milk Of Magnesia - PO DAILY PRN CONSTIPATION Nicotine 21 mg 12/25/16 12:00 01/21/17 09:58 Nicoderm Patch - TD 21 mg DAILY TERRY Administration Nicotine Polacrilex 4 mg 12/25/16 11:51 01/21/17 06:24 Nicorette Gum - BUC 4 mg Q2H PRN Administration NICOTINE REPLACEMENT RX Multivit/Folic Acid/Iron 1 tab 12/26/16 10:00 01/21/17 09:58 Vitamins (Sjr) - PO 1 tab DAILY TERRY Administration Pseudoephedrine/Triprolidine 1 combo 12/25/16 11:51 Actifed - PO TID PRN NASAL CONGESTION Thiamine HCl 100 mg 12/25/16 22:00 01/20/17 21:51 Vitamin B1 - PO 100 mg HS TERRY Administration Current Side Effect: No Lab tests ordered: Yes Lab tests reviewed: Yes Provider note:: Patient will complete this program on 01/22/17. He has met his treatment goals and will contunue to address his issues in outpatient treatment at [facility]. He responded well to Hydroxyzine 50 mg po Q 4hrs prn for anxiety. Told instructional writer that from his participation in this program, he has learned the importance of attending his outpatient program as wel as making meetings. He is stable for discharge on 01/22/17 Total face to face time:: 35 Mental Status Exam - Mental Status Exam Alert and Oriented to: Time, Place, Person Cognitive Function: Fair Patient Appearance: Well Groomed Mood: Hopeful, Euthymic Affect: Appropriate Patient Behavior: Cooperative Speech Pattern: Clear Voice Loudness: Normal Thought Process: Intact Thought Disorder: Not Present Hallucinations: Denies Suicidal Ideation: Denies Homicidal Ideation: Denies Insight/Judgement: Fair Sleep: Fair Appetite: Good Muscle strength/Tone: Normal Gait/Station: Normal Psychiatric Treatment Plan - Problem List (1) Opioid dependence with withdrawal Current Visit: No (2) Cocaine dependence, uncomplicated Current Visit: No (3) Cannabis dependence, uncomplicated Current Visit: No (4) Nicotine dependence Current Visit: No Qualifiers: Nicotine product type: cigarettes Substance use status: uncomplicated Qualified Code(s): F17.210 - Nicotine dependence, cigarettes, uncomplicated (5) Substance-induced anxiety disorder Current Visit: Yes (6) Substance-induced sleep disorder Current Visit: Yes Initial treatment plan: Patient is discharged tomorrow and refered to [facility] for outpatient treatment
[2017-01-21] MEDS: IBUPROFEN 600 MG TABLET (FP) PO PRN ×2 (13:40→23:40)
[2017-01-21] MEDS: THIAMINE HCL 100 MG TABLET (FP) PO SCH (22:04)
[2017-01-21] MEDS: diphenhydrAMINE HCL 50 MG CAPSULE PO PRN (22:04)
[2017-01-22] MEDS: hydrOXYzine PAMOATE 25 MG CAPSULE (FP) PO PRN ×2 (06:16→09:30)
[2017-01-22] MEDS: CYCLOBENZAPRINE HCL 10 MG TABLET (FP) PO PRN ×2 (06:16→09:30)
[2017-01-22 06:48] VITALS: BP 126/73; TEMP 98.2
[2017-01-22] MEDS: IBUPROFEN 600 MG TABLET (FP) PO PRN (07:46)
[2017-01-22] MEDS: NICOTINE 21 MG/24 HOURS TOPICAL PATCH TD SCH (09:30)
[2017-01-22] MEDS: PRENATAL VITAMINS W/ FOLIC ACID TABLET (FP) PO SCH (09:30)
[2017-01-22] MEDS: LIDOCAINE 5% TOPICAL PATCH TP SCH (09:31)
== END 2017-01-22 09:40 | disposition home or self-care (01) | DRG 772 ==
LOC: YASAS 09:47 → Y3W 11:47
PROVIDERS: ADMIT Psychiatry & Neurology Psychiatry; ATTEND Psychiatry & Neurology Psychiatry
PROC: HZ42ZZZ Group Counseling for Substance Abuse Treatment, Cognitive-Behavioral (ICD-10-PCS; principal; 2017-01-22)
DX: F11.23 Opioid dependence with withdrawal (principal); F14.20 Cocaine dependence, uncomplicated; F12.20 Cannabis dependence, uncomplicated; F17.210 Nicotine dependence, cigarettes, uncomplicated; F19.24 Other psychoactive substance dependence with psychoactive substance-induced mood disorder; F19.282 Other psychoactive substance dependence with psychoactive substance-induced sleep disorder
CPT/HCPCS: 81003; 93005; 93010

== ENCOUNTER 2017-10-17 15:49 | Inpatient (IN) | payer OTHER ==
[2017-10-17 17:35] VITALS: BMI 29.2
--- NOTE | 2017-10-17 20:33 | HP ---
Admission ROS [facility] Chief Complaint: Seeking admission to rehab for cocaine dependence Allergies/Adverse Reactions: Allergies Allergy/AdvReac Type Severity Reaction Status Date / Time No Known Allergies Allergy Verified 10/17/17 19:24 History of Present Illness: 37 years old male with a long history of cocaine dependence is admitted to rehab. Patient denies past medical history and reports severe anxiety. Exam Limitations: No Limitations - Ebola screening Have you traveled outside of the country in the last 21 days: No (N) Have you had contact with anyone from an Ebola affected area: No Have you been sick,other than usual withdrawal symptoms: No Do you have a fever: No - Review of Systems Constitutional: No Symptoms Reported EENT: reports: No Symptoms Reported Respiratory: reports: No Symptoms reported GI: reports: No Symptoms Reported : reports: No Symptoms Reported Musculoskeletal: reports: No Symptoms Reported Integumentary: reports: No Symptoms Reported Endocrine: reports: No Symptoms Reported Hematology: reports: No Symptoms Reported Psychiatric: reports: No Sypmtoms Reported, Mood/Affect Appropiate, Orientated x3 Other Systems: Reviewed and Negative Patient History - Patient Medical History Hx Anemia: No Hx Asthma: No Hx Chronic Obstructive Pulmonary Disease (COPD): No Hx Cancer: No Hx Cardiac Disorders: No Hx Congestive Heart Failure: No Hx Hypertension: No Hx Hypercholesterolemia: No Hx Pacemaker: No HX Cerebrovascular Accident: No Hx Seizures: No Hx Dementia: No Hx Diabetes: No Hx Gastrointestinal Disorders: No Hx Liver Disease: No Hx Genitourinary Disorders: No Hx Sexually Transmitted Disorders: No Hx Renal Disease (ESRD): No Hx Thyroid Disease: No Hx Human Immunodeficiency Virus (HIV): No (Negative May 2017) Hx Hepatitis C: No Hx Depression: No Hx Suicide Attempt: No (Denies suicidal ideation) Hx Bipolar Disorder: No Hx Schizophrenia: No - Patient Surgical History Past Surgical History: No Hx Neurologic Surgery: No Hx Cataract Extraction: No Hx Cardiac Surgery: No Hx Lung Surgery: No Hx Abdominal Surgery: No Hx Appendectomy: No Hx Cholecystectomy: No Hx Genitourinary Surgery: No Hx Orthopedic Surgery: No Anesthesia Reaction: No - PPD History Previous Implant?: Yes Documented Results: Negative w/proof Implanted On Prior [facility] Admission?: Yes Date: 12/21/16 Results: 0 MM PPD to be Administered?: No - Reproductive History Patient is a Female of Child Bearing Age (11 -55 yrs old): No (Male) - Smoking Cessation Smoking history: Current every day smoker Have you smoked in the past 12 months: Yes Aproximately how many cigarettes per day: 30 Cigars Per Day: 0 Hx Chewing Tobacco Use: No Initiated information on smoking cessation: Yes 'Breaking Loose' booklet given: 10/17/17 - Substance & Tx. History Hx Alcohol Use: No Hx Substance Use: Yes (cocaine) Substance Use Type: Cocaine Hx Substance Use Treatment: Yes ([facility] 11/2016) - Substances Abused Cocaine Route: Inhalation Frequency: 1-3 times last 30 days Amount used: $20 Age of first use: 19 Date of Last Use: 09/17/17 Family Disease History - Family Disease History Family Disease History: CA: Grandparent (Lung Ca, Alzheimer's - ), Other: Grandparent Admission Physical Exam [facility] - Vital Signs Vital Signs: Vital Signs - 24 hr 10/17/17 17:33 Temperature 97.8 F Pulse Rate 72 Respiratory 18 Rate Blood Pressure 118/66 - Physical General Appearance: Yes: Within Normal Limits, Nourished, Appropriately Dressed HEENTM: Yes: Within Normal Limits, EOMI, ABRAN Respiratory: Yes: Lungs Clear, Normal Breath Sounds, No Respiratory Distress Neck: Yes: Supple Breast: Yes: Breast Exam Deferred Cardiology: Yes: Regular Rhythm, Regular Rate, S1, S2 Abdominal: Yes: Normal Bowel Sounds, Soft Genitourinary: Yes: Within Normal Limits Back: Yes: Normal Inspection Musculoskeletal: Yes: Within Normal Limits, full range of Motion, Gait Steady Extremities: Yes: Within Normal Limits, Normal Inspection, Non-Tender Neurological: Yes: Alert, Normal Mood/Affect, Normal Response Integumentary: Yes: Within Normal Limits, Warm Lymphatic: Yes: Within Normal Limits - Diagnostic (1) Cocaine dependence, uncomplicated Current Visit: Yes Status: Chronic (2) Nicotine dependence Current Visit: Yes Status: Chronic Qualifiers: Nicotine product type: cigarettes Substance use status: uncomplicated Qualified Code(s): F17.210 - Nicotine dependence, cigarettes, uncomplicated Cleared for Admission [facility] - Detox or Rehab [facility] Level of Care: Observation Bed Claeared for Rehab Admission: Yes [facility] Breath Alcohol Content Breath Alcohol Content: 0 Urine Drug Screen - Results Drug Screen Negative: Yes Inpatient Rehab Admission - Initial Determination Are CD services needed?: Yes Free of communicable disease: Yes Not in need of hospitalization: Yes - Rehab Admission Criteria Previous failed treatment: Yes Poor recovery environment: Yes Comorbidities: No Lacks judgement: No Patient is meeting Inpatient Rehab admission criteria:: Yes
[2017-10-17] MEDS ORDERED: ACETAMINOPHEN 325 MG TABLET (FP) PO PRN (20:47)
[2017-10-17] MEDS ORDERED: IBUPROFEN 400 MG TABLET (FP) PO PRN (20:47)
[2017-10-17] MEDS ORDERED: MAG HYDROX/AL HYDROX/SIMETH 30 ML UNIT-DOSE CUP PO PRN (20:47)
[2017-10-17] MEDS ORDERED: MAGNESIUM HYDROX 2400MG/30ML ORAL SUSPENSION 30 ML CUP PO PRN (20:47)
[2017-10-17] MEDS ORDERED: P-EPHED 60MG/TRIPROLIDI 2.5MG TABLET PO PRN (20:47)
[2017-10-17] MEDS ORDERED: MENTHOL/PHENOL 1 EACH UD MM PRN (20:47)
[2017-10-17] MEDS ORDERED: MAGNESIUM CITRATE 300 ML BOTTLE PO PRN (20:47)
[2017-10-17] MEDS ORDERED: guaiFENesin/D-METHORPHAN HB 10 ML UNIT-DOSE CUPS PO PRN (20:47)
[2017-10-17] MEDS ORDERED: LOPERAMIDE HCL 2 MG CAPSULE PO PRN (20:47)
[2017-10-17] MEDS ORDERED: hydrOXYzine PAMOATE 50 MG CAPSULE (FP) PO ONE (21:00)
[2017-10-17] MEDS: THIAMINE HCL 100 MG TABLET (FP) PO SCH (21:37)
[2017-10-17] MEDS: NICOTINE POLACRILEX 2 MG GUM BC PRN (23:17)
[2017-10-18 01:58] LABS: URINE APPEARANCE CLEAR; URINE BILIRUBIN NEGATIVE (NEGATIVE); URINE BLOOD NEGATIVE (NEGATIVE); URINE COLOR LTYELLOW; URINE GLUCOSE (UA) NEGATIVE (NEGATIVE); URINE KETONE NEGATIVE (NEGATIVE); URINE LEUK ESTERASE NEGATIVE (NEGATIVE); URINE NITRITE NEGATIVE (NEGATIVE); URINE PROTEIN NEGATIVE (NEGATIVE); URINE UROBILINOGEN NEGATIVE mg/dL (0.2-1.0)
--- NOTE | 2017-10-18 06:53 | HP ---
Psychiatrist Admission - Data Date of interview: 10/18/17 Admission source: [place]/Court mandated Identifying data: This is the second [facility] sadmission for this 37 years old single male, father of an 12 years old son, unemployed with no source of income, homeless Medical History: Unremarkable. Smokes cigarettes 1.5ppd Psychiatric History: History is consistent with what he reported on a previous admission earlier this year. Reports that age 12 he was referred by school to see a psychiatrist because he was acting up after his father abandoned the family. He saw that psychiatrist twice and no medication was prescribed. Physical/Sexual Abuse/Trauma History: Denies history of physical, sexual abuse as well as DV relationship Additional Comment: Reports history of 4-5 misdemeanor arrests. Denies being on probation at present. Reports being in drug court for an active case Vital Signs: Vital Signs - 24 hr 10/17/17 10/18/17 10/18/17 17:33 00:30 03:30 Temperature 97.8 F Pulse Rate 72 Respiratory 18 18 18 Rate Blood Pressure 118/66 Allergies/Adverse Reactions: Allergies Allergy/AdvReac Type Severity Reaction Status Date / Time No Known Allergies Allergy Verified 10/17/17 19:24 Date of last physical exam: 10/17/17 Concur with the findings of this exam: Yes - Substance Abuse/Tx History Hx Alcohol Use: No Hx Substance Use: Yes Substance Use Type: Cocaine (Started using cocaine at age 19, consumes $20 worth 1-3times in thepast 30 days. Last used on 10/17/17) Hx Substance Use Treatment: Yes (2 previous inpt detox & one inpt rehab [place] [facility] [place] Mental Status Exam - Mental Status Exam Alert and Oriented to: Time, Place, Person Cognitive Function: Fair Patient Appearance: Well Groomed Mood: Depressed, Anxious Patient Behavior: Cooperative Speech Pattern: Clear Voice Loudness: Normal Thought Process: Intact, Goal Oriented Hallucinations: Denies Suicidal Ideation: Denies Homicidal Ideation: Denies Insight/Judgement: Poor Sleep: Fair Appetite: Good Muscle strength/Tone: Normal Gait/Station: Normal Psychiatric Findings - Problem List ([place] 1, 2,3) (1) Cocaine dependence Current Visit: Yes Status: Acute (2) Nicotine dependence Current Visit: Yes Status: Chronic Qualifiers: Nicotine product type: cigarettes Substance use status: uncomplicated Qualified Code(s): F17.210 - Nicotine dependence, cigarettes, uncomplicated (3) Substance-induced anxiety disorder Current Visit: No Status: Acute (4) Substance-induced sleep disorder Current Visit: No Status: Acute - Initial Treatment Plan Initial Treatment Plan: 1) Start Vistaril 50 mg po Q 4hrs prn for anxiety and Belsomra 10 mg po HS for insomnia. 2) Monitor progress
[2017-10-18 10:14] LABS: CHLORIDE 105 mmol/L (98-107); POTASSIUM 4.3 mmol/L (3.5-5.1); SODIUM 139 mmol/L (136-145)
[2017-10-18 10:17] LABS: HEMATOCRIT 43.5 % (35.4-49); HEMOGLOBIN 14.3 GM/dL (11.7-16.9); MCH 30.9 pg (25.7-33.7); MCHC 32.9 g/dl (32.0-35.9); MEAN CELL VOLUME 93.8 fl (80-96); MEAN PLT VOLUME 11.5 fl (7.5-11.1); PLATELET COUNT 169 K/MM3 (134-434); RBC 4.63 M/mm3 (4.00-5.60); RDW 12.7 % (11.9-15.9); WHITE BLOOD COUNT 5.4 K/mm3 (4.0-10.0)
[2017-10-18] MEDS: NICOTINE 14 MG/24 HOURS TOPICAL PATCH TD SCH (10:18)
[2017-10-18] MEDS: PRENATAL VITAMINS W/ FOLIC ACID TABLET (FP) PO SCH (10:18)
[2017-10-18 10:30] LABS: ALBUMIN 3.4 g/dl (3.4-5.0); ALK PHOS 68 U/L (45-117); ANION GAP 8 (8-16); BILIRUBIN,TOTAL 0.8 mg/dL (0.2-1.0); BLOOD UREA NITROGEN 13 mg/dL (7-18); CALCIUM 8.3 mg/dL (8.5-10.1); CO2 26 mmol/L (21-32); CREATININE 1.2 mg/dL (0.7-1.3); GLUCOSE,RANDOM 82 mg/dL (74-106); SGOT/AST 15 U/L (15-37); SGPT/ALT 16 U/L (12-78); TOT PROT 6.5 g/dl (6.4-8.2)
[2017-10-18] MEDS: hydrOXYzine PAMOATE 50 MG CAPSULE (FP) PO PRN ×3 (12:29→21:27)
--- NOTE | 2017-10-18 13:56 | EKG ---
Test Reason : Blood Pressure : / mmHG Vent. Rate : 054 BPM Atrial Rate : 054 BPM P-R Int : 146 ms QRS Dur : 098 ms QT Int : 440 ms P-R-T Axes : 037 024 012 degrees QTc Int : 417 ms SINUS BRADYCARDIA WHEN COMPARED WITH ECG OF 26-DEC-2016 05:33, NO SIGNIFICANT CHANGE WAS FOUND Confirmed by MANDEEP ALARCON MD ([id number]) on 10/18/2017 1:55:53 PM Referred By: Confirmed By:MANDEEP ALARCON MD
[2017-10-18] MEDS: THIAMINE HCL 100 MG TABLET (FP) PO SCH (21:26)
[2017-10-18] MEDS: SUVOREXANT 10 MG TABLET PO PRN (21:26)
[2017-10-18] MEDS: NICOTINE POLACRILEX 2 MG GUM BC PRN (21:57)
[2017-10-19] MEDS: PRENATAL VITAMINS W/ FOLIC ACID TABLET (FP) PO SCH (10:05)
[2017-10-19] MEDS: hydrOXYzine PAMOATE 50 MG CAPSULE (FP) PO PRN ×3 (10:05→21:35)
[2017-10-19] MEDS: NICOTINE 14 MG/24 HOURS TOPICAL PATCH TD SCH (10:05)
[2017-10-19] MEDS: NICOTINE POLACRILEX 2 MG GUM BC PRN ×3 (10:06→21:36)
[2017-10-19] MEDS: THIAMINE HCL 100 MG TABLET (FP) PO SCH (21:35)
[2017-10-19] MEDS: SUVOREXANT 10 MG TABLET PO PRN (21:36)
[2017-10-20] MEDS: PRENATAL VITAMINS W/ FOLIC ACID TABLET (FP) PO SCH (10:03)
[2017-10-20] MEDS: NICOTINE 14 MG/24 HOURS TOPICAL PATCH TD SCH (10:03)
[2017-10-20] MEDS: hydrOXYzine PAMOATE 50 MG CAPSULE (FP) PO PRN ×3 (10:03→21:23)
[2017-10-20] MEDS: NICOTINE POLACRILEX 2 MG GUM BC PRN ×3 (10:04→20:17)
[2017-10-20] MEDS: THIAMINE HCL 100 MG TABLET (FP) PO SCH (21:23)
[2017-10-20] MEDS: SUVOREXANT 10 MG TABLET PO PRN (21:23)
[2017-10-21] MEDS: hydrOXYzine PAMOATE 50 MG CAPSULE (FP) PO PRN ×4 (06:40→22:00)
[2017-10-21] MEDS: NICOTINE POLACRILEX 2 MG GUM BC PRN ×3 (07:54→14:09)
[2017-10-21] MEDS: PRENATAL VITAMINS W/ FOLIC ACID TABLET (FP) PO SCH (10:08)
[2017-10-21] MEDS: NICOTINE 14 MG/24 HOURS TOPICAL PATCH TD SCH (10:08)
[2017-10-21] MEDS: THIAMINE HCL 100 MG TABLET (FP) PO SCH (22:00)
[2017-10-21] MEDS: SUVOREXANT 10 MG TABLET PO PRN (22:01)
[2017-10-22] MEDS: PRENATAL VITAMINS W/ FOLIC ACID TABLET (FP) PO SCH (10:06)
[2017-10-22] MEDS: NICOTINE 14 MG/24 HOURS TOPICAL PATCH TD SCH (10:06)
[2017-10-22] MEDS: hydrOXYzine PAMOATE 50 MG CAPSULE (FP) PO PRN ×4 (10:06→22:04)
[2017-10-22] MEDS: NICOTINE POLACRILEX 2 MG GUM BC PRN ×3 (10:07→22:04)
[2017-10-22] MEDS: SUVOREXANT 10 MG TABLET PO PRN (22:04)
[2017-10-22] MEDS: THIAMINE HCL 100 MG TABLET (FP) PO SCH (22:04)
[2017-10-23] MEDS: NICOTINE 14 MG/24 HOURS TOPICAL PATCH TD SCH (10:50)
[2017-10-23] MEDS: hydrOXYzine PAMOATE 50 MG CAPSULE (FP) PO PRN ×3 (10:50→22:03)
[2017-10-23] MEDS: PRENATAL VITAMINS W/ FOLIC ACID TABLET (FP) PO SCH (10:50)
[2017-10-23] MEDS: NICOTINE POLACRILEX 2 MG GUM BC PRN ×3 (10:51→22:04)
--- NOTE | 2017-10-23 11:05 | PN ---
Psychiatric Progress Note Vital Signs: Vital Signs Period Temp Pulse Resp BP Sys/Rondon Pulse Ox Last 24 Hr 97.9 F 55 18-18 127/74 ROS: HTN, HLD, Abdominal aortic aneurysm,history of prostate cancer and alcohol- related seizure Current Medications: Active Medications Generic Name Dose Route Start Last Admin Trade Name Freq PRN Reason Stop Dose Admin Acetaminophen 650 mg 10/17/17 20:47 Tylenol - PO Q4H PRN PAIN Al Hydroxide/Mg Hydroxide 30 ml 10/17/17 20:47 Mylanta Oral Suspension - PO Q6H PRN DYSPEPSIA Eucalyptus/Menthol/Phenol/Sorbitol 1 each 10/17/17 20:47 Cepastat Lozenge - MM Q4H PRN SORE THROAT Guaifenesin 10 ml 10/17/17 20:47 Robitussin Dm - PO Q6H PRN COUGH Hydroxyzine Pamoate 50 mg 10/18/17 11:41 10/23/17 10:50 Vistaril - PO 50 mg Q4H PRN Administration ANXIETY Ibuprofen 400 mg 10/17/17 20:47 Motrin - PO Q6H PRN SEVERE PAIN Loperamide HCl 4 mg 10/17/17 20:47 Imodium - PO Q6H PRN DIARRHEA Magnesium Citrate 300 ml 10/17/17 20:47 Citroma - PO Q48H PRN CONSTIPATION Magnesium Hydroxide 30 ml 10/17/17 20:47 Milk Of Magnesia - PO DAILY PRN CONSTIPATION Nicotine 14 mg 10/18/17 10:00 10/23/17 10:50 Nicoderm Patch - TD 14 mg DAILY TERRY Administration Nicotine Polacrilex 2 mg 10/17/17 20:47 10/23/17 10:51 Nicorette Gum - BC 2 mg Q2H PRN Administration NICOTINE REPLACEMENT RX Multivit/Folic Acid/Iron 1 tab 10/18/17 10:00 10/23/17 10:50 Vitamins (Sjr) - PO 1 tab DAILY TERRY Administration Pseudoephedrine/Triprolidine 1 combo 10/17/17 20:47 Actifed - PO TID PRN NASAL CONGESTION Thiamine HCl 100 mg 10/17/17 22:00 10/22/17 22:04 Vitamin B1 - PO 100 mg HS TERRY Administration Psychiatric Treatment Plan - Problem List (1) Cocaine dependence Current Visit: Yes (2) Nicotine dependence Current Visit: Yes Qualifiers: Nicotine product type: cigarettes Substance use status: uncomplicated Qualified Code(s): F17.210 - Nicotine dependence, cigarettes, uncomplicated (3) Substance-induced anxiety disorder Current Visit: No (4) Substance-induced sleep disorder Current Visit: No
[2017-10-23] MEDS ORDERED: SUVOREXANT 10 MG TABLET PO PRN (22:00)
[2017-10-23] MEDS: SUVOREXANT 10 MG TABLET PO PRN (22:03)
[2017-10-23] MEDS: THIAMINE HCL 100 MG TABLET (FP) PO SCH (22:03)
[2017-10-24] MEDS: hydrOXYzine PAMOATE 50 MG CAPSULE (FP) PO PRN ×3 (10:33→21:45)
[2017-10-24] MEDS: NICOTINE 14 MG/24 HOURS TOPICAL PATCH TD SCH (10:33)
[2017-10-24] MEDS: PRENATAL VITAMINS W/ FOLIC ACID TABLET (FP) PO SCH (10:33)
[2017-10-24] MEDS: NICOTINE POLACRILEX 2 MG GUM BC PRN ×3 (13:06→21:46)
[2017-10-24] MEDS: THIAMINE HCL 100 MG TABLET (FP) PO SCH (21:45)
[2017-10-24] MEDS: SUVOREXANT 10 MG TABLET PO PRN (21:45)
[2017-10-24] MEDS ORDERED: SUVOREXANT 10 MG TABLET PO PRN (22:00)
[2017-10-25] MEDS: hydrOXYzine PAMOATE 50 MG CAPSULE (FP) PO PRN ×4 (07:22→21:27)
[2017-10-25] MEDS: NICOTINE 14 MG/24 HOURS TOPICAL PATCH TD SCH (10:03)
[2017-10-25] MEDS: PRENATAL VITAMINS W/ FOLIC ACID TABLET (FP) PO SCH (10:03)
[2017-10-25] MEDS: NICOTINE POLACRILEX 2 MG GUM BC PRN ×3 (10:04→21:28)
[2017-10-25] MEDS: THIAMINE HCL 100 MG TABLET (FP) PO SCH (21:27)
[2017-10-26] MEDS: hydrOXYzine PAMOATE 50 MG CAPSULE (FP) PO PRN ×4 (08:24→21:37)
[2017-10-26] MEDS: NICOTINE POLACRILEX 2 MG GUM BC PRN ×4 (08:26→21:39)
[2017-10-26] MEDS: PRENATAL VITAMINS W/ FOLIC ACID TABLET (FP) PO SCH (09:05)
[2017-10-26] MEDS: NICOTINE 21 MG/24 HOURS TOPICAL PATCH TD SCH (09:05)
[2017-10-26] MEDS: THIAMINE HCL 100 MG TABLET (FP) PO SCH (21:36)
[2017-10-26] MEDS: SUVOREXANT 10 MG TABLET PO PRN (21:38)
[2017-10-27] MEDS: NICOTINE POLACRILEX 2 MG GUM BC PRN ×3 (07:06→22:03)
[2017-10-27] MEDS: hydrOXYzine PAMOATE 50 MG CAPSULE (FP) PO PRN ×4 (07:06→22:02)
[2017-10-27] MEDS: PRENATAL VITAMINS W/ FOLIC ACID TABLET (FP) PO SCH (09:58)
[2017-10-27] MEDS: NICOTINE 21 MG/24 HOURS TOPICAL PATCH TD SCH (09:58)
[2017-10-27] MEDS: THIAMINE HCL 100 MG TABLET (FP) PO SCH (22:02)
[2017-10-27] MEDS: SUVOREXANT 10 MG TABLET PO PRN (22:02)
[2017-10-28] MEDS: NICOTINE 21 MG/24 HOURS TOPICAL PATCH TD SCH (10:23)
[2017-10-28] MEDS: PRENATAL VITAMINS W/ FOLIC ACID TABLET (FP) PO SCH (10:23)
[2017-10-28] MEDS: hydrOXYzine PAMOATE 50 MG CAPSULE (FP) PO PRN ×2 (14:45→21:53)
[2017-10-28] MEDS: NICOTINE POLACRILEX 2 MG GUM BC PRN ×2 (16:54→21:55)
[2017-10-28] MEDS: SUVOREXANT 10 MG TABLET PO PRN (21:53)
[2017-10-28] MEDS: THIAMINE HCL 100 MG TABLET (FP) PO SCH (21:54)
[2017-10-29] MEDS: hydrOXYzine PAMOATE 50 MG CAPSULE (FP) PO PRN ×4 (07:37→21:47)
[2017-10-29] MEDS: PRENATAL VITAMINS W/ FOLIC ACID TABLET (FP) PO SCH (10:10)
[2017-10-29] MEDS: NICOTINE 21 MG/24 HOURS TOPICAL PATCH TD SCH (10:11)
[2017-10-29] MEDS: NICOTINE POLACRILEX 2 MG GUM BC PRN ×3 (10:13→21:48)
[2017-10-29] MEDS: THIAMINE HCL 100 MG TABLET (FP) PO SCH (21:47)
[2017-10-29] MEDS: SUVOREXANT 10 MG TABLET PO PRN (21:47)
[2017-10-30] MEDS: hydrOXYzine PAMOATE 50 MG CAPSULE (FP) PO PRN ×4 (08:54→21:53)
[2017-10-30] MEDS: NICOTINE POLACRILEX 2 MG GUM BC PRN ×4 (08:55→21:54)
[2017-10-30] MEDS: PRENATAL VITAMINS W/ FOLIC ACID TABLET (FP) PO SCH (10:05)
[2017-10-30] MEDS: NICOTINE 21 MG/24 HOURS TOPICAL PATCH TD SCH (10:05)
[2017-10-30] MEDS: THIAMINE HCL 100 MG TABLET (FP) PO SCH (21:53)
[2017-10-30] MEDS: SUVOREXANT 10 MG TABLET PO PRN (21:53)
[2017-10-31] MEDS: NICOTINE 21 MG/24 HOURS TOPICAL PATCH TD SCH (10:25)
[2017-10-31] MEDS: PRENATAL VITAMINS W/ FOLIC ACID TABLET (FP) PO SCH (10:25)
[2017-10-31] MEDS: hydrOXYzine PAMOATE 50 MG CAPSULE (FP) PO PRN ×4 (10:26→23:16)
[2017-10-31] MEDS: NICOTINE POLACRILEX 2 MG GUM BC PRN ×4 (10:27→23:17)
[2017-10-31] MEDS: SUVOREXANT 10 MG TABLET PO PRN (21:47)
[2017-10-31] MEDS: THIAMINE HCL 100 MG TABLET (FP) PO SCH (21:48)
[2017-11-01] MEDS: hydrOXYzine PAMOATE 50 MG CAPSULE (FP) PO PRN ×4 (06:38→21:55)
[2017-11-01] MEDS: PRENATAL VITAMINS W/ FOLIC ACID TABLET (FP) PO SCH (10:09)
[2017-11-01] MEDS: NICOTINE 21 MG/24 HOURS TOPICAL PATCH TD SCH (10:09)
[2017-11-01] MEDS: NICOTINE POLACRILEX 2 MG GUM BC PRN (10:11)
[2017-11-01] MEDS: SUVOREXANT 10 MG TABLET PO PRN (21:55)
[2017-11-01] MEDS: THIAMINE HCL 100 MG TABLET (FP) PO SCH (21:55)
[2017-11-01] MEDS: NICOTINE POLACRILEX 4 MG GUM BUC PRN (21:56)
[2017-11-02] MEDS: hydrOXYzine PAMOATE 50 MG CAPSULE (FP) PO PRN ×3 (07:00→20:13)
[2017-11-02] MEDS: PRENATAL VITAMINS W/ FOLIC ACID TABLET (FP) PO SCH (09:55)
[2017-11-02] MEDS: NICOTINE POLACRILEX 4 MG GUM BUC PRN ×3 (09:55→20:14)
[2017-11-02] MEDS: NICOTINE 21 MG/24 HOURS TOPICAL PATCH TD SCH (09:55)
[2017-11-02] MEDS: THIAMINE HCL 100 MG TABLET (FP) PO SCH (21:30)
[2017-11-02] MEDS: SUVOREXANT 10 MG TABLET PO PRN (21:30)
[2017-11-03] MEDS: hydrOXYzine PAMOATE 50 MG CAPSULE (FP) PO PRN ×4 (07:37→21:54)
[2017-11-03] MEDS: NICOTINE POLACRILEX 4 MG GUM BUC PRN ×2 (07:38→21:54)
[2017-11-03] MEDS: NICOTINE 21 MG/24 HOURS TOPICAL PATCH TD SCH (10:13)
[2017-11-03] MEDS: PRENATAL VITAMINS W/ FOLIC ACID TABLET (FP) PO SCH (10:13)
[2017-11-03] MEDS: THIAMINE HCL 100 MG TABLET (FP) PO SCH (21:54)
[2017-11-03] MEDS: SUVOREXANT 10 MG TABLET PO PRN (21:54)
[2017-11-04] MEDS: PRENATAL VITAMINS W/ FOLIC ACID TABLET (FP) PO SCH (10:13)
[2017-11-04] MEDS: hydrOXYzine PAMOATE 50 MG CAPSULE (FP) PO PRN ×3 (10:13→21:19)
[2017-11-04] MEDS: NICOTINE 21 MG/24 HOURS TOPICAL PATCH TD SCH (10:14)
[2017-11-04] MEDS: NICOTINE POLACRILEX 4 MG GUM BUC PRN ×2 (17:05→21:20)
[2017-11-04] MEDS: SUVOREXANT 10 MG TABLET PO PRN (21:19)
[2017-11-04] MEDS: THIAMINE HCL 100 MG TABLET (FP) PO SCH (21:19)
[2017-11-05] MEDS: hydrOXYzine PAMOATE 50 MG CAPSULE (FP) PO PRN ×4 (07:15→22:01)
[2017-11-05] MEDS: PRENATAL VITAMINS W/ FOLIC ACID TABLET (FP) PO SCH (10:25)
[2017-11-05] MEDS: NICOTINE 21 MG/24 HOURS TOPICAL PATCH TD SCH (10:25)
[2017-11-05] MEDS: NICOTINE POLACRILEX 4 MG GUM BUC PRN ×2 (14:23→22:02)
[2017-11-05] MEDS: THIAMINE HCL 100 MG TABLET (FP) PO SCH (22:00)
[2017-11-05] MEDS: SUVOREXANT 10 MG TABLET PO PRN (22:01)
[2017-11-06] MEDS: hydrOXYzine PAMOATE 50 MG CAPSULE (FP) PO PRN ×4 (06:39→21:32)
[2017-11-06] MEDS: NICOTINE 21 MG/24 HOURS TOPICAL PATCH TD SCH (10:16)
[2017-11-06] MEDS: PRENATAL VITAMINS W/ FOLIC ACID TABLET (FP) PO SCH (10:16)
[2017-11-06] MEDS: NICOTINE POLACRILEX 4 MG GUM BUC PRN ×3 (10:18→21:32)
[2017-11-06] MEDS: SUVOREXANT 10 MG TABLET PO PRN (21:32)
[2017-11-06] MEDS: THIAMINE HCL 100 MG TABLET (FP) PO SCH (21:32)
[2017-11-07] MEDS: hydrOXYzine PAMOATE 50 MG CAPSULE (FP) PO PRN ×3 (06:20→14:21)
[2017-11-07] MEDS: NICOTINE POLACRILEX 4 MG GUM BUC PRN ×3 (06:21→14:22)
[2017-11-07 06:59] VITALS: BP 102/59; PULSE 62; TEMP 98.1
[2017-11-07] MEDS: NICOTINE 21 MG/24 HOURS TOPICAL PATCH TD SCH (10:23)
[2017-11-07] MEDS: PRENATAL VITAMINS W/ FOLIC ACID TABLET (FP) PO SCH (10:23)
--- NOTE | 2017-11-07 18:08 | PN ---
S Progress Note Note: Called by nursing staff because patient wants to leave the program early. He is referred to [facility] for penitentiary treatment. He is stable for discharge. Discharge order placed
--- NOTE | 2017-11-07 20:25 | PN ---
[facility] Progress Note Note: received nurse call that the patient is been regular discharged today
== END 2017-11-07 18:30 | disposition home or self-care (01) | DRG 772 ==
LOC: YASAS 15:49 → Y3W 19:44
PROVIDERS: ADMIT Psychiatry & Neurology Psychiatry; ATTEND Psychiatry & Neurology Psychiatry
PROC: HZ42ZZZ Group Counseling for Substance Abuse Treatment, Cognitive-Behavioral (ICD-10-PCS; principal; 2017-10-17)
DX: F14.20 Cocaine dependence, uncomplicated (principal); F17.210 Nicotine dependence, cigarettes, uncomplicated; F19.280 Other psychoactive substance dependence with psychoactive substance-induced anxiety disorder; F19.282 Other psychoactive substance dependence with psychoactive substance-induced sleep disorder
CPT/HCPCS: 36415; 80053; 81003; 85027; 86593; 93005; 93010

== ENCOUNTER 2020-07-01 06:34 | Emergency (ER) | payer OTHER ==
[2020-07-01 07:01] VITALS: BP 125/88; PULSE 77; TEMP 98; BMI 24.5
[2020-07-01] MEDS ORDERED: BENZOCAINE 20% 57 GM BOTTLE TP ONE ×2 (09:05→09:16)
--- NOTE | 2020-07-01 09:05 | PDOC ---
History of Present Illness - General Chief Complaint: Toothache Stated Complaint: TOOTHACHE Time Seen by Provider: 07/01/20 08:06 - History of Present Illness Initial Comments: 07/01/20 08:44 HPI 39 y/o M no significant medical hx presents to the ED with 1 week of left upper tooth pain (tooth #14). Pt reports sudden worsening of his pain yesterday evening keeping him awake at night. He took 3200mg ibuprofen in total between m idnight and 6 a.m this morning, withy only moderate improvement in his pain. Pain radiates to his left ear, down to left side of neck. Earlier he experienced some eye pain, which has since subsided. He denies any fevers, chills, nausea, vomiting, purulent drainage from mouth or ear. PMHx: as noted above ROS: as noted SHx: Denies Etoh, IVDA, tobacco use Allergies: NKDA ROS: GENERAL/CONSTITUTIONAL: No fever or chills. No weakness. HEAD, EYES, EARS, NOSE AND THROAT: No change in vision. No ear pain or discharge. No sore throat. CARDIOVASCULAR: No chest pain or shortness of breath RESPIRATORY: No cough, wheezing, or hemoptysis. GASTROINTESTINAL: No nausea, vomiting, diarrhea or constipation. GENITOURINARY: No dysuria, frequency, or change in urination. MUSCULOSKELETAL: No joint or muscle swelling or pain. No neck or back pain. SKIN: No rash NEUROLOGIC: No headache, vertigo, loss of consciousness, or change in strength/sensation. ENDOCRINE: No increased thirst. No abnormal weight change HEMATOLOGIC/LYMPHATIC: No anemia, easy bleeding, or history of blood clots. ALLERGIC/IMMUNOLOGIC: No hives or skin allergy. PE: GENERAL: Awake, alert, and fully oriented, in no acute distress HEAD: No signs of trauma, normocephalic, atraumatic EYES: PERRLA, EOMI, sclera anicteric, conjunctiva clear ENT: Auricles normal inspection, hearing grossly normal, nares patent, oropharynx clear without exudates. Moist mucosa, tooth #14 painful to touch, with brown discoloration around teeth. NECK: Normal ROM, supple, no lymphadenopathy, JVD, or masses LUNGS: No distress, speaks full sentences, clear to auscultation bilaterally HEART: Regular rate and rhythm, normal S1 and S2, no murmurs, rubs or gallops, peripheral pulses normal and equal bilaterally. ABDOMEN: Soft, nontender, normoactive bowel sounds. No guarding, no rebound. No masses EXTREMITIES : Normal inspection, Normal range of motion, no edema. No clubbing or cyanosis NEUROLOGICAL: Cranial nerves II through XII grossly intact. Normal speech, normal gait, no focal sensorimotor deficits SKIN: Warm, Dry, normal turgor, no rashes or lesions noted MDM DDx including but not limited to: Workup: TX: Scores - HEART score - EKG: normal sinus rhythm, HR bpm, ID ms, QRS ms, QTc ms ED course Pt given info for emergency dental services who will be able to see him in the next 30minutes will give benzocaine spray pt denies any pills for pain. meds: Re-assessment: 07/01/20 09:06 07/01/20 09:11 Past History - Medical History Allergies/Adverse Reactions: Allergies Allergy/AdvReac Type Severity Reaction Status Date / Time No Known Allergies Allergy Verified 10/17/17 19:24 Home Medications: Ambulatory Orders NK [No Known Home Medication] 12/19/16 Anemia: No Asthma: No Cancer: No Cardiac Disorders: No CVA: No COPD: No CHF: No Dementia: No Diabetes: No GI Disorders: No Disorders: No HTN: No Hypercholesterolemia: No Kidney Stones: No Liver Disease: No Seizures: No Thyroid Disease: No - Surgical History Abdominal Surgery: No Appendectomy: No Cardiac Surgery: No Cholecystectomy: No Lung Surgery: No Neurologic Surgery: No Orthopedic Surgery: No - Reproductive History Testicular Surgery: No - Psycho-Social/Smoking History Smoking History: Unknown if ever smoked Have you smoked in the past 12 months: Yes Number of Cigarettes Smoked Daily: 30 Cigars Per Day: 0 'Breaking Loose' booklet given: 10/17/17 - Substance Abuse Hx (Audit-C & DAST Scrn) How often the patient has a drink containing alcohol: Never Score: In Men: 4 or > Positive; In Women: 3 or > Positive: 0 Screen Result (Pos requires Nsg. Audit-10AR): Negative In the last yr the pt used illegal drug/Rx for NonMed reason: No Score: Yes response is considered Positive: 0 Screen Result (Positive result requires Nsg. DAST-10): Negative *Physical Exam - Vital Signs Last Vital Signs Temp Pulse Resp BP Pulse Ox 98 F 77 18 125/88 100 07/01/20 06:48 07/01/20 06:48 07/01/20 06:48 07/01/20 06:48 07/01/20 06:48 Discharge - Discharge Information Problems reviewed: Yes Clinical Impression/Diagnosis: Tooth pain Condition: Stable Disposition: HOME - Follow up/Referral - Patient Discharge Instructions Patient Printed Discharge Instructions: DI for Dental Pain Additional Instructions: You have an appointment with emergency dental services at [facility] for evaluation of your tooth pain your care is not complete until you for for that appointment. RETURN TO THE ER: ig you experience fevers, chills, loss of sensation on your face or any worsening symptoms. - Post Discharge Activity Work/Back to School Note: Back to Work
[2020-07-01] MEDS ORDERED: LIDOCAINE VISCOUS 2% ORAL/TOP 20 ML UNIT-DOSE CUP ONE (09:18)
--- NOTE | 2020-07-01 09:53 | PDOC ---
Attending Attestation - Resident Resident Name: Ioana Sweeney - ED Attending Attestation I have performed the following: I have examined & evaluated the patient, The case was reviewed & discussed with the resident, I agree w/resident's findings & plan, Exceptions are as noted - HPI HPI: 07/01/20 09:52 Agree with resident hpi Discharge - Discharge Information Clinical Impression/Diagnosis: Tooth pain Condition: Stable Disposition: HOME - Follow up/Referral - Patient Discharge Instructions Patient Printed Discharge Instructions: DI for Dental Pain Additional Instructions: You have an appointment with emergency dental services at [facility] for evaluation of your tooth pain your care is not complete until you for for that appointment. RETURN TO THE ER: ig you experience fevers, chills, loss of sensation on your face or any worsening symptoms. - Post Discharge Activity Work/Back to School Note: Back to Work
--- NOTE | 2020-07-01 10:07 | PDOC ---
Documentation entered by Halima Rosales SCRIBE, acting as scribe for Maurice Fine MD. Maurice Fine MD: This documentation has been prepared by the Bobby yee Brenda, SCRIBE, under my direction and personally reviewed by me in its entirety. I confirm that the documentation accurately reflects all work, treatment, procedures, and medical decision making performed by me. Attending Attestation - Resident Resident Name: Ioana Sweeney - ED Attending Attestation I have performed the following: I have examined & evaluated the patient, The case was reviewed & discussed with the resident, I agree w/resident's findings & plan, Exceptions are as noted - HPI HPI: 07/01/20 09:35 The patient is a 39 year old male with no significant PMH who presents to the ED for evaluation of 1 week of left upper tooth pain on tooth #14. He notes that the pain became worse suddenly yesterday, with moderate improvement overnight after taking ibuprofen. Patient endorses radiation of pain to left ear and to the left side of his neck. Pt reported to Dr. Esperanza Atkins that he took 3200mg motrin but later clarified that he took 3 doses of 800mg every 6 hours. The patient denies chest pain, shortness of breath, headache and dizziness. Denies fever, chills, nausea, vomiting, diarrhea and constipation. Denies dysuria, frequency, urgency and hematuria. Allergies: NKA Past surgical history: None reported Social history: No reported hx of tobacco use, alcohol use or illicit drug use. - Physicial Exam PE: 07/01/20 09:41 GENERAL: Awake, alert, and fully oriented, in no acute distress EYES: PERRLA, EOMI, sclera anicteric, conjunctiva clear ENT: +multiple dental caries, worse in tooth 14. +ttp to palpation of tooth 14. No fluctuance or induration adjacent to tooth. No edema to face NECK: Normal ROM, supple, no lymphadenopathy, JVD, or masses LUNGS: Breath sounds equal, clear to auscultation bilaterally. No wheezes, and no crackles HEART: Regular rate and rhythm, normal S1 and S2, no murmurs, rubs or gallops ABDOMEN: Soft, nontender, normoactive bowel sounds. No guarding, no rebound. No masses EXTREMITIES: Normal range of motion, no edema. No clubbing or cyanosis. No cords, erythema, or tenderness NEUROLOGICAL: Normal speech, cranial nerves intact, equal strength and sensation intact SKIN: Warm, Dry, normal turgor, no rashes or lesions noted. - Medical Decision Making 07/01/20 10:05 39-year-old male presents emergency department with tooth pain. No systemic symptoms of infection. No evidence of abscess on oral exam. Multiple dental caries visualized. While in the emergency department the patient scheduled an appointment in the next hour with his dentist. Patient is clinically stable for discharge to follow-up at the dentist this morning. Discussed with patient the appropriate dosage of ibuprofen and tylenol for pain control, he expresses understanding. I discussed the physical exam findings, ancillary test results and final diagnoses with the patient. I answered all of the patient's questions. The patient was satisfied with the care received and felt comfortable with the discharge plan and treatment plan. The patient will call their primary care physician within 24 hours to arrange follow-up and will return to the Emergency Department with any new, persistent or worsening symptoms. Discharge - Discharge Information Problems reviewed: Yes Clinical Impression/Diagnosis: Tooth pain, Dental caries Condition: Stable Disposition: HOME - Follow up/Referral - Patient Discharge Instructions Patient Printed Discharge Instructions: DI for Dental Pain Additional Instructions: You have an appointment with emergency dental services at [facility] for evaluation of your tooth pain your care is not complete until you for for that appointment. RETURN TO THE ER: if you experience fevers, chills, loss of sensation on your face or any worsening symptoms. - Post Discharge Activity Work/Back to School Note: Back to Work
== END 2020-07-01 09:59 | disposition home or self-care (01) ==
LOC: JER 06:34
DX: K08.89 Other specified disorders of teeth and supporting structures (principal)
CPT/HCPCS: 99282-25